=== PATIENT | male | born 1965 | race Caucasian/White ===

== ENCOUNTER 2021-10-05 04:34 | Inpatient (IN) | payer OTHER ==
[~2021-10-05] VITALS: Ht 182.9 cm; Wt 150.6 kg
[2021-10-05 05:29] LABS: BASOPHILS ABSOLUTE AUTO 0.02 K/mm3 (0.00-0.23); BASOPHILS PERCENT AUTO 0 % (0-2); EOSINOPHILS ABSOLUTE AUTO 0.05 K/mm3 (0.00-0.68); EOSINOPHILS PERCENT AUTO 1 % (0-6); Hematocrit 40.5 % (37.0-53.0); Hemoglobin 13.9 g/dL (13.5-17.5); IMMATURE GRAN ABSOLUTE AUTO 0.04 K/mm3 (0.00-0.10); IMMATURE GRAN PERCENT AUTO 1 % (0-1); LYMPHOCYTES ABSOLUTE AUTO 1.59 K/mm3 (0.84-5.20); LYMPHOCYTES PERCENT AUTO 19 % (21-46); MONOCYTES ABSOLUTE AUTO 0.55 K/mm3 (0.16-1.47); MONOCYTES PERCENT AUTO 6 % (4-13); Mean Corpuscular HGB 30.8 pg (26.0-34.0); Mean Corpuscular HGB Conc 34.3 g/dL (31.5-36.5); Mean Corpuscular Volume 90 fL (80-100); NEUTROPHILS ABSOLUTE AUTO 6.33 K/mm3 (1.96-9.15); NEUTROPHILS PERCENT AUTO 74 % (41-73); Platelet Count 200 K/mm3 (150-400); RDW Coefficient Variation 15.9 % (11.7-14.2); RDW Standard Deviation 53.5 fL (35.1-46.3); Red Blood Cell Count 4.51 M/mm3 (4.30-5.90); White Blood Cell Count 8.58 K/mm3 (4.00-11.30)
[2021-10-05 06:10] LABS: Alanine Aminotransfer (ALT/SGP 82 U/L (12-78); Albumin, Blood 2.8 g/dL (3.4-5.0); Albumin/Globulin Ratio 0.6 (0.8-1.8); Alk Phos 106 U/L (50-136); Anion Gap 9 mmol/L (6-16); Aspartate Aminotrans (AST/SGOT 171 U/L (12-37); Bilirubin, Total 1.3 mg/dL (0.1-1.0); Blood Urea Nitrogen 13 mg/dL (8-24); Bun/Creatinine Ratio 14.5 (12.0-20.0); CO2, Blood 32 mmol/L (21-32); Calcium, Blood 8.2 mg/dL (8.5-10.1); Chloride, Blood 92 mmol/L (98-108); Creatinine, Blood 0.89 mg/dL (0.60-1.20); Globulin, Blood 4.5 g/dL (2.2-4.0); Glomerular Filtration Rate >60 (60-); Glucose, Blood 151 mg/dL (70-99); Potassium, Blood 2.8 mmol/L (3.5-5.5); Sodium, Blood 133 mmol/L (136-145); Total Protein, Blood 7.3 g/dL (6.4-8.2); Troponin I <0.015 ng/mL (0.000-0.040)
[2021-10-05 08:00] LABS: Source, Urine Clean Catch
[2021-10-05 08:10] LABS: Appearance, Urine Hazy (Clear); Bilirubin, Urine Neg (Neg); Blood, Urine Neg (Neg); Color, Urine Yellow (P-Yellow); Glucose Qualitative, Urine Neg (Neg); Ketones, Urine Neg (Neg); Leukocyte Esterase, Urine Neg (Neg); Nitrite, Urine Neg (Neg); Protein, Urine Neg (Neg); Urobilinogen, Urine NORM (Normal)
[2021-10-05 08:26] LABS: Amorphous Mod (0-Heavy); Bacteria Mod /hpf; Mucus Light (0-Heavy); Red Blood Cells, Urine 0-2 /hpf (0-2); Squamous Epithelial Cells Few /hpf (Few); White Blood Cells, Urine 0-2 /hpf (0-5)
[2021-10-05 09:22] LABS: Influenza A, PCR NEGATIVE (NEGATIVE); Influenza B, PCR NEGATIVE (NEGATIVE); Resp Syncytial Virus, PCR NEGATIVE (NEGATIVE); SARS-Cov-2 (COVID-19) PCR, MMC NEGATIVE (NEGATIVE)
--- NOTE | 2021-10-05 18:22 | NUR ---
PT PLEASANT, COOP A/O X3. SOME GARBLED SPEACH WHEN STARTS TALKING. ADMITS TO ETOH ABUSE. LAST DRINK TUES. STATES HAS HAD WITHDRAWLS BEFORE MOSTLY SHAKES. WORKS [employer]. DISCUSSED WITH DR STRONG. ORDERS PENDING FOR ETOH W/D MEDS. CWA PRESENTLY 4. ABD IS DISTENDED MODERATELY FOR PT. FIRM . TENDER. STATES ICE CHIPS OKAY, DOES NOT INCREASE PAIN. ADVISED TO STOP IF BECOMES PROBLEMATIC. H/R REG, NO MURMER NOTED. NO TELE. LUNGS CLEAR, RESP EASY, UNLABORED, ON R/A. BT X4, LAST BM COUPLE DAYS. NOT EATING COUPLE DAYS PER PT. VOIDS URINAL. OR SBA TO BATHROOM. BED ALARM ON FOR SAFETY, BED IN LOW POSITION, CALLLITE IN REACH.
[2021-10-05 22:27] LABS: Magnesium, Blood 1.1 mg/dL (1.6-2.4); Potassium, Blood 3.5 mmol/L (3.5-5.5)
[2021-10-06 04:29] LABS: BASOPHILS ABSOLUTE AUTO 0.04 K/mm3 (0.00-0.23); BASOPHILS PERCENT AUTO 0 % (0-2); EOSINOPHILS ABSOLUTE AUTO 0.04 K/mm3 (0.00-0.68); EOSINOPHILS PERCENT AUTO 0 % (0-6); Hematocrit 44.2 % (37.0-53.0); Hemoglobin 15.2 g/dL (13.5-17.5); IMMATURE GRAN ABSOLUTE AUTO 0.22 K/mm3 (0.00-0.10); IMMATURE GRAN PERCENT AUTO 1 % (0-1); LYMPHOCYTES ABSOLUTE AUTO 0.87 K/mm3 (0.84-5.20); LYMPHOCYTES PERCENT AUTO 6 % (21-46); MONOCYTES ABSOLUTE AUTO 0.62 K/mm3 (0.16-1.47); MONOCYTES PERCENT AUTO 4 % (4-13); Mean Corpuscular HGB 30.8 pg (26.0-34.0); Mean Corpuscular HGB Conc 34.4 g/dL (31.5-36.5); Mean Corpuscular Volume 90 fL (80-100); Mean Platelet Volume 9.2 fL (9.1-12.4); NEUTROPHILS ABSOLUTE AUTO 14.02 K/mm3 (1.96-9.15); NEUTROPHILS PERCENT AUTO 89 % (41-73); Platelet Count 145 K/mm3 (150-400); RDW Coefficient Variation 15.9 % (11.7-14.2); RDW Standard Deviation 52.9 fL (35.1-46.3); Red Blood Cell Count 4.93 M/mm3 (4.30-5.90); White Blood Cell Count 15.81 K/mm3 (4.00-11.30)
[2021-10-06 05:11] LABS: Alanine Aminotransfer (ALT/SGP 54 U/L (12-78); Albumin, Blood 2.5 g/dL (3.4-5.0); Albumin/Globulin Ratio 0.7 (0.8-1.8); Alk Phos 90 U/L (50-136); Anion Gap 8 mmol/L (6-16); Aspartate Aminotrans (AST/SGOT 98 U/L (12-37); Bilirubin, Total 2.6 mg/dL (0.1-1.0); Blood Urea Nitrogen 14 mg/dL (8-24); CO2, Blood 28 mmol/L (21-32); Chloride, Blood 96 mmol/L (98-108); Globulin, Blood 3.4 g/dL (2.2-4.0); Glomerular Filtration Rate >60 (60-); Glucose, Blood 83 mg/dL (70-99); Magnesium, Blood 1.5 mg/dL (1.6-2.4); Potassium, Blood 3.3 mmol/L (3.5-5.5); Sodium, Blood 132 mmol/L (136-145); Total Protein, Blood 5.9 g/dL (6.4-8.2)
--- NOTE | 2021-10-06 05:51 | NUR ---
PT IS ORIENTED X4, HAS SLEPT SOME OF THE NIGHT WITH MANY TRIPS TO THE RESTROOM. PT C/O ABD, L RIB AND BILATERAL FLANK PAIN AND HAS BEEN TREATED PER EMAR. PT ETOH WITHDRAWAL ASSESSMET HAS REMAINED UNCHANGED AT 4 DUE TO MILD TREMORS. PT STATES HE DRINKS 40+ BEERS A DAY AND 1.5 PACKS OF CIGARETTES DAILY. PT STATES HE IS NOT SURE HE WANTS TO QUIT SMOKING. 1 PERSON ASSIST WITH BED ALRM ON. WILL CONT TO MONITOR.
--- NOTE | 2021-10-06 09:32 | NUR ---
Spiritual care visit conducted. Patient is lying in bed and alert. Patient immediately tells me about his alcoholism and the successes and failures that he has had through the years. As i explore his spiritual beliefs he states that he is a Pentecostal and that the longest runs of being alocohol free have been when he is deeply invovled in prayer, Bible reading and gnosticist attendance. We talk about strategies for moving forward, I hear confession, reinforce helpful attitudes and practices and provide therapeutic listening, pastoral mental health counselor and prayer. Patient responds well and shows signs of catharsis and increased resolve to live healthier. I will continue to remain available to patient and family.
--- NOTE | 2021-10-06 16:49 | NUR ---
PT DOING BETTER THIS JAVIER. GAVE LIBRIUM FOR ANX AND SHAKEYNESS, STATES SOME BETTER. IS CONCERNED THAT HE WILL HAVE FURTHER PROBLEMS WITH PANCREACE. WE HAD GOOD DISCUSSION, EXPLAINED THAT SOMETIMES OUR BODIES CAN HEAL WITH REST. SOMETIMES CANNOT. SO IT IS BEST TO STOP INSULTING BODY WITH BAD HABITS. MOVE TO SAFER DECISIONS. STOP DRINKING, EAT BETTER, MOVE MORE. ETC. NO NEW CONCERNS NOTED. BED IN LOW POSITION, CALL LITE IN REACH, CALLS APPROP
--- NOTE | 2021-10-07 05:36 | NUR ---
CHANGE IN STATUS/CODE AT START OF SHIFT, PT WAS A&O X 4, ABLE TO AMBULATE SBA TO THE BATHROOM. PT WAS MILDLY ANXIOUS AND RESTLESS AND REPORTED NAUSEA, AND WAS MEDICATED WITH PRN IV PHENERGAN AND LIBRIUM 25 MG AT 2034. PT'S NAUSEA WAS RELIEVED AND HE SLEPT FOR A SHORT TIME, BUT THEN AWOKE STILL APPEARING ANXIOUS AND RESTLESS. HOSPITALIST DR DAO NOTIFIED AT APPROXIMATELY 2199, AND LIBRIUM WAS INCREASED TO 50 MG AND A OT DOSE OF ATIVAN 1 MG WAS ORDERED. PT WAS GIVEN 50 MG OF LIBRIUM AT 2234. CIWA AT THAT TIME WAS BETWEEN 9-11. AFTER AN HOUR, PT REPORTED THAT HE FELT BETTER, AND THAT HE DIDN'T WANT ANY FURTHER MEDICATION AT THAT TIME. PT DID SLEEP FOR A SHORT AMOUNT OF TIME, BUT THEN HIS CONDITION BEGAN TO DECLINE AFTER APPROXIMATELY 0100. PT WAS GETTING OUT OF BED FREQUENTLY, APPEARED MORE CONFUSED AND AGITATED, AND BEGAN SWEATING PROFUSELY. PT ALSO REPORTED SEEING A "FACE STARING AT ME FROM THE WINDOW". PT WAS GIVEN OT DOSE OF ATIVAN AT 015 AFTER HE PULLED OUT HIS IV TRYING TO FIND THE "WOMAN WHO WAS STARING AT ME". CIWA AT THAT TIME WAS 18. AFTER THAT DOSE OF ATIVAN, PT BECAME MORE CONFUSED AND AGITATED, WITH VERBAL AND AUDITORY HALLUCINATIONS. PT WAS ABLE TO ANSWER SOME QUESTIONS AT THAT TIME, TO TELL THE MONTH AND THE YEAR BUT NOT HIS LOCATION OR THE DAY. CIWA REMAINED AT 17-18 AFTER INITIAL DOSE OF ATIVAN. HOSPITALIST DR BANGURA WAS CALLED, AND A NEW ORDER FOR ATIVAN 1-3 MG Q2H WAS RECEIVED. PT WAS MEDICATED WITH 2 MG ATIVAN AT 030, AND HE WAS TRANSFERED TO ROOM [facility] TO PUT HIM ON CAMERA MONITORING. PT BECAME MORE CONFUSED, UNABLE TO FOLLOW DIRECTIONS OR ANSWER QUESTIONS, TRYING TO CLIMB OUT OF BED. HE WAS PLACED IN A BILL VEST RESTRAINT, THEN IN WRIST RESTRAINTS WHEN HE TRIED TO RIP HIS BILL VEST AND IV LINE APART. PT WAS THEN GIVEN AN ADDITIONAL 1 MG ATIVAN AT 033, AND A CALL OUT WAS PLACED TO DR BANGURA FOR FURTHER ORDERS AND RESTRAINT ORDERS. THIS RN WAS OUT OF THE ROOM WHEN PT HAD A SEIZURE PER REPORT FROM LEE PETERSON. A RAPID RESPONSE WAS CALLED APPROXIMATELY 344, THEN A CODE CALLED IMMEDIATELY AFTER WHEN PT WAS FOUND NOT TO HAVE A PULSE. CPR WAS STARTED. PT BROUGHT BACK AND TRANSFERED TO ICU02. REPORT GIVEN TO LEE HOGUE IN ICU.
[2021-10-07 06:03] LABS: Hematocrit 40.6 % (37.0-53.0); Hemoglobin 13.7 g/dL (13.5-17.5); Mean Corpuscular HGB 30.9 pg (26.0-34.0); Mean Corpuscular HGB Conc 33.7 g/dL (31.5-36.5); Mean Corpuscular Volume 91 fL (80-100); Mean Platelet Volume 9.8 fL (9.1-12.4); Platelet Count 110 K/mm3 (150-400); RDW Coefficient Variation 16.3 % (11.7-14.2); RDW Standard Deviation 55.4 fL (35.1-46.3); Red Blood Cell Count 4.44 M/mm3 (4.30-5.90); White Blood Cell Count 13.71 K/mm3 (4.00-11.30)
[2021-10-07 06:08] LABS: PCO2 Arterial 43.6 mmHg (35-45); PO2 Arterial 72.5 mmHg (80-100); pH Blood Arterial 7.37 (7.35-7.45)
[2021-10-07 06:23] LABS: Albumin, Blood 1.9 g/dL (3.4-5.0); Albumin/Globulin Ratio 0.5 (0.8-1.8); Bilirubin, Total 3.1 mg/dL (0.1-1.0); Bun/Creatinine Ratio 14.5 (12.0-20.0); Calcium, Blood 6.3 mg/dL (8.5-10.1); Creatinine, Blood 1.73 mg/dL (0.60-1.20); Globulin, Blood 3.5 g/dL (2.2-4.0); Potassium, Blood 3.7 mmol/L (3.5-5.5); Total Protein, Blood 5.4 g/dL (6.4-8.2)
[2021-10-07 06:45] LABS: BAND PERCENT MAN 16 % (0-8); BASOPHILS PERCENT MAN 0 % (0-2); EOSINOPHILS PERCENT MAN 0 % (0-6); LYMPHOCYTES ABSOLUTE MAN 0.41 K/mm3 (0.84-5.20); LYMPHOCYTES PERCENT MAN 3 % (21-46); MONOCYTES ABSOLUTE MAN 0.41 K/mm3 (0.16-1.47); MONOCYTES PERCENT MAN 3 % (4-13); MYELOCYTE ABSOLUTE MAN 0.13 K/mm3 (0.00-0.00); MYELOCYTE PERCENT MAN 1 % (0-0); NEUTROPHILS ABSOLUTE MAN 12.75 K/mm3 (1.96-9.15); SEG NEUTROPHILS PERCENT MAN 77 % (41-73); TOTAL CELLS COUNTED 100
--- NOTE | 2021-10-07 07:30 | NUR ---
ASSUMED CARE PATIENT INTUBATED AND SEDATED W/ PROPOFOL @ 40MCG/KG/MIN. 8.0 ETT 24CM @ TEETH; AC/VC 16/550/5/90% W/ SPO2 HIGH 90'S AND RR 16-18. 20G IV TO RT FOREARM, CENTRAL LINE TO RT IJ INF NS @ 75ML/HR, PROPOFOL, AND LEVOPHED @ 4MCG/MIN. PATIENT HAS FREQUENT NONPURPOSEFUL JERKING MOVEMENT OF UPPER BODY. NO GAG OR SWALLOW REFLEX, BUT WEAK COUGH IS PRESENT. GRIMACES AND REACHES TO NOXIOUS STIMULI AND PULLS ARM AWAY FROM PAIN WHEN CUTTING TAPE OFF OF ARM, BUT DOES NOT FOLLOW DIRECTION. PUPILS ARE PINPOINT AND NONREACTIVE TO LIGHT WERO. CLEAR LUNG SOUNDS T/O AND DIMINISHED IN BASES. CLEAR SPUTUM FROM ETT W/ RED TINGE FROM BLOOD. FAINT PULSES IN ALL EXTREMITIES. BP STABLE W/ MAPS GREATER THAN 65. SINUS RHYTHM W/ RATE 80'S. ABD SEVERELY DISTENDED W/ ABSENT BT. OGT PLACED DURING ASSESSMENT. PLACEMENT VERIFIED VIA AIR THROUGH OGT AND PLACED TO LOW INTERMITTENT SUCTION W/ COPIOUS AMOUNTS OF DARK GREEN BILE SUCTIONED. SKIN IS OVERALL DRY AND DUSKY, SCATTERED BRUISING TO BUE.
[2021-10-07 07:46] LABS: Source, Urine Catheter
[2021-10-07 07:52] LABS: Appearance, Urine Cloudy (Clear); Blood, Urine 4+ (Neg); Color, Urine Amber (P-Yellow); Glucose Qualitative, Urine Neg (Neg); Ketones, Urine Neg (Neg); Leukocyte Esterase, Urine 1+ (Neg); Nitrite, Urine Neg (Neg); Protein, Urine 3+ (Neg); Specific Gravity, Urine 1.025 (1.003-1.022); Urobilinogen, Urine 1+ (Normal)
[2021-10-07 08:04] LABS: Bilirubin, Urine 1+ (Neg)
[2021-10-07 08:08] LABS: Squamous Epithelial Cells Many /hpf (Few)
[2021-10-07 08:09] LABS: Amorphous Heavy (0-Heavy); Bacteria Many /hpf; Transitional Epithelial Cells Few /hpf (0-Rare)
[2021-10-07 09:12] LABS: Prothrombin Time Results 16.7 Sec (9.7-11.5)
[2021-10-07 09:41] LABS: International Normalized Ratio 1.53
--- NOTE | 2021-10-07 11:46 | NUR ---
CT SCAN/PREIUMBILICAL DISCOLORATION DURING CT OF HEAD, YELLOW DISCOLORATION NOTED AT PERIUMBILICAL AREA THAT IS NONBLANCHING AND COOL TO TOUCH. CALLED DR. CHANG FROM CT AND HE ARRIVED TO ASSESS; CT ABD PELVIS ORDERED AND COMPLETED. WILL OBTAIN ABD PRESSURE READINGS.
--- NOTE | 2021-10-07 12:34 | NUR ---
BANANA BAG AND NS DC'D PER DR. CHANG. CL DRSG CHANGED. CLAY CASTER AT BEDSIDE.
--- NOTE | 2021-10-07 13:32 | NUR ---
ABD PRESSURE ABD PRESSURE OF 18 OBTAINED AT BEDISDE.
--- NOTE | 2021-10-07 15:26 | NUR ---
PT'S MOTHER UPDATED. PT GAVE VERBAL PERMISSION FOR MOTHER TO MAKE MEDICAL DECISIONS-PER DR STRONG.
[2021-10-07 16:29] LABS: Albumin, Blood 2.4 g/dL (3.4-5.0); Anion Gap 12 mmol/L (6-16); Blood Urea Nitrogen 24 mg/dL (8-24); Bun/Creatinine Ratio 16.8 (12.0-20.0); CO2, Blood 23 mmol/L (21-32); Calcium, Blood 5.6 mg/dL (8.5-10.1); Chloride, Blood 96 mmol/L (98-108); Creatinine, Blood 1.43 mg/dL (0.60-1.20); Glomerular Filtration Rate 51 (60-); Glucose, Blood 156 mg/dL (70-99); Potassium, Blood 3.3 mmol/L (3.5-5.5); Sodium, Blood 131 mmol/L (136-145)
--- NOTE | 2021-10-07 16:57 | NUR ---
LABS/ABD PRESSURE CALCIUM AND POTASSIUM CAME BACK LOW. CALL MADE TO DR. CHANG AND HE ORDERED 1G CALCIUM CHLORIDE IV NOW AND Q8H AND POTASSIUM CHLORIDE 40MEQ IV NOW. ABD PRESSURE INCREASED FROM [address] CHANG NOTIFIED AND REQUESTED RECHECK @ 5234. NURSE NOTIFY PLACED.
--- NOTE | 2021-10-07 17:57 | NUR ---
PT POSITIONED FLAT FOR TURN, DURING THIS TIME PT BEGAN PULLING ON RESTRAINTS W GREAT STRENGTH, FACE PURPLE, PT THEN BEGAN STACKING ON VENT CONTINOUSLY. PROPOFOL INCREASED TO 50MCG, VERSED 2MG GIVEN.
--- NOTE | 2021-10-07 18:22 | NUR ---
SHIFT SUMMARY PATIENT REMAINED INTUBATED AND SEDATED THROUGHOUT SHIFT. PROPOFOL INCREASED TOWARDS END OF SHIFT D/T PATIENT ATTEMPTING TO SIT UP IN BED, PULLING AT RESTRAINTS, AND STACKING HIS BREATHS ON THE VENT; PROPOFOL NOW @ 50MCG/KG/MIN AND VERSED IVP GIVEN. LEVOPHED DECREASED TO 3MCG/MIN. NS INF @ 75ML/HR. PATIENT RECEIVED ELECTROLYTE REPLACEMENTS OF POTASSIUM, CALCIUM, MAGNESIUM, AND THIAMINE. HE ALSO RECIEVED TWO DOSES OF ALBUMIN. CT OF HEAD COMPLETED AND CT ABD ADDED ON AT THAT TIME; SEE CT NOTE. ABD PRESSURES INCREASED FROM 18 TO 21; SEE NOTE ON ABD PRESSURES. NO OTHER MAJOR CHANGES DURING THE SHIFT.
--- NOTE | 2021-10-07 23:11 | NUR ---
iNTRA-ABDOMINAL/BLADDER PRESSURE READING. READING WAS 20 AT 2230 ON 10/07/21
[2021-10-08 03:42] LABS: BASOPHILS ABSOLUTE AUTO 0.03 K/mm3 (0.00-0.23); BASOPHILS PERCENT AUTO 0 % (0-2); EOSINOPHILS PERCENT AUTO 1 % (0-6); Hematocrit 37.9 % (37.0-53.0); IMMATURE GRAN ABSOLUTE AUTO 0.06 K/mm3 (0.00-0.10); IMMATURE GRAN PERCENT AUTO 1 % (0-1); LYMPHOCYTES PERCENT AUTO 7 % (21-46); MONOCYTES ABSOLUTE AUTO 1.16 K/mm3 (0.16-1.47); MONOCYTES PERCENT AUTO 10 % (4-13); Mean Corpuscular HGB 31.4 pg (26.0-34.0); Mean Corpuscular HGB Conc 34.3 g/dL (31.5-36.5); Mean Corpuscular Volume 92 fL (80-100); NEUTROPHILS PERCENT AUTO 81 % (41-73); NRBC ABSOLUTE 0.02 K/mm3 (0.00-0.02); NRBC Auto 0.2 /100 WBC (0.0-0.2); Platelet Count 113 K/mm3 (150-400); RDW Coefficient Variation 17.2 % (11.7-14.2); RDW Standard Deviation 56.8 fL (35.1-46.3); Red Blood Cell Count 4.14 M/mm3 (4.30-5.90); White Blood Cell Count 11.65 K/mm3 (4.00-11.30)
[2021-10-08 04:09] LABS: Alanine Aminotransfer (ALT/SGP 31 U/L (12-78); Albumin, Blood 2.6 g/dL (3.4-5.0); Albumin/Globulin Ratio 0.8 (0.8-1.8); Alk Phos 75 U/L (50-136); Anion Gap 12 mmol/L (6-16); Aspartate Aminotrans (AST/SGOT 56 U/L (12-37); Bilirubin, Total 2.4 mg/dL (0.1-1.0); Blood Urea Nitrogen 19 mg/dL (8-24); Bun/Creatinine Ratio 16.4 (12.0-20.0); CO2, Blood 23 mmol/L (21-32); Calcium, Blood 6.7 mg/dL (8.5-10.1); Chloride, Blood 98 mmol/L (98-108); Creatinine, Blood 1.16 mg/dL (0.60-1.20); Globulin, Blood 3.4 g/dL (2.2-4.0); Glomerular Filtration Rate >60 (60-); Glucose, Blood 96 mg/dL (70-99); Magnesium, Blood 2.2 mg/dL (1.6-2.4); Potassium, Blood 3.2 mmol/L (3.5-5.5); Sodium, Blood 133 mmol/L (136-145)
--- NOTE | 2021-10-08 06:06 | NUR ---
SUMMARY: NEURO- SEDATEDON PROP. POST CODE 10/07/21. PERRL. 2-3MM. GRIMACE AND W/D TO PAIN. NO COUGH OR GAG APPARENT. RESP- DIFFICULT TO LAY FLAT. PT WILL HOLD BREATH OR STACK AND FIGHT VENT UNTIL HOB ELEVATED. LUNGS CLEAR T/O, EQUAL BILAT. RT ADJUSTED VENT SETTINGS OVERNIGHT. SPO2 >95% CV- HR 80'S, BP WNL 120-130'S LEVO OFF SINCE 2100. CAP REFILL WNL, PALPABLE PULSES X 4 GI. OG TO LIWS. 700ML OUT. ACTIVE BS. LAST BM 10/06 . PINK TINGED UOP. STAINED PATEL TUBE. LOTS OF SEDIMENT. ANNAMARIE IN COLOR NOW. SKIN INTACT. ABD MARKED AND AREA REFILL IMPROVING. R-IJ AND R-AC IV. K REPLACEMENT IN PROGRESS.
--- NOTE | 2021-10-08 09:43 | NUR ---
ASSUMED CARE REPORT RECIEVED FROM CARROTING MACHINE OFFBEARER RN. PATIENT LYING IN BED INTUBATED AND SEDATED ON PROPOFOL @ 60MCG/KG/MIN. LEVOPHED ON SB; NS @ TKO AND KCL INF. PATIENT DOES NOT OPEN EYES OR FOLLOW COMMANDS, PUPILS 2MM WERO AND SLUGGISH RESPONSE TO LIGHT. TEMP 98.7F. GRIMACES, PULLS ON RESTRAINTS, ATTEMPTS TO SIT UP IN BED, AND COUGHS TO ORAL CARE AND REPOSITIONING. 8.[address] 24CM @ TEETH. AC/VC 16/550/14/60% W/ SPO2 IN MID TO HIGH 90'S, RR 20'S. OCCASSIONAL COUGH W/ THIN WHITE SECRETIONS. LUNG SOUNDS CLEAR T/O AND DIM IN BASES. PULSES STRONG IN ALL EXTREMITIES, SINUS TACH W/ RATE IN 100'S. ABD SEVERELY DISTENDED AND FIRM TO PALPATION. HYPOACTIVE BT T/O. OGT IN PLACE TO LOW INTERMITTENT SUCTION DRAINING DARK GREEN BILE. YELLOW DISCOLORATION IN PERIUMBILICAL AREA IS BECOMING MORE PINK AND IS NO LONGER COOL TO TOUCH. OUTLINE FROM YESTERDAY STILL IN PLACE. PATEL PATENT AND DRAINING ANNAMARIE/RED URINE WITH LARGE AMOUNTS OF SEDIMENT TO GRAVITY. SKIN IS OVERALL DIAPHORETIC W/ BEADING OF SWEAT ON FOREHEAD. INCREASED PROPOFOL TO 70MCG/KGMIN AFTER PATIENT HAD INCREASED COUGHING, PULLING ON RESTRAINTS, SWEATING, TACHYCARDIA W/ RATE IN 110'S-120'S, AND INCREASED BLOOD PRESSURE DESPITE VERSED AND DILAUDID IVP. SPOKE W/ DR. CHANG AND ORDERS OBTAINED TO START PRECEDEX.
--- NOTE | 2021-10-08 13:44 | NUR ---
PRECEDEX GTT STARTED AT 1020. BP SLOWLY STRATED TO TREND DOWNWARD OVER THE NEXT 2 HOURS. AROUND NOON, MAP DROP <60. PRECEDEX DECREASED TO 0.3MCG, PROPOFOL DECREASED TO 20MCG, AND LEVOPHED STARTED AT 4MCG AND INCREASED TO 8MCG. PT WELL SEDATED BUT STARTED STACKING ON VENT, PROPOFOL INCREASED TO 30MCG. LEVOPHED NOW AT 6MCG, WILL CONT TO TITRATE DOWN JULIO.
--- NOTE | 2021-10-08 18:23 | NUR ---
SHIFT SUMMARY PATIENT EXHIBITING MORE NEUROLOGICAL RESPONSES TO STIMULI; MOVES HEAD SIDE TO SIDE WITH STIMULI AND ORAL CARE. PRECEDEX STARTED TODAY AND TITRATED DOWN TO 0.3MCG/KG/HR. PATIENT BECAME HYPOTENSIVE W/ MAPS IN THE 50'S WHEN PRECEDEX WAS AT 0.5MCG/KG/HR W/ PROPOFOL INF. LEVOPHED STARTED AGAIN FOR A SHORT TIME, BUT IS NOW BACK TO STAND BY. PROPOFOL NOW AT 20MCG/KG/MIN AND TOLERATING VENT WELL. FIO2 TITRATED DOWN TODAY AND NOW AT AC/VC 16/550/14/45% W/ SPO2 IN MID TO HIGH 90S'S, RR 16-LOW 20'S. ABD PRESSURE THIS MORNING WAS 13 AND BOWEL TONES NOW PRESENT AND HYPOACTIVE. OGT TO SUCTION W/ GREEN BILE DRAINAGE. PATEL PATENT AND DRAINING ANNAMARIE/RED URINE W/ LARGE AMOUNTS OF SEDIMENT. PATIENT'S MOTHER CAME TO BEDSIDE TO VISIT TODAY.
--- NOTE | 2021-10-08 20:45 | NUR ---
PATIENT INTUBATED AND SEDATED, PROPOFOL 35 MCG, PRECEDEX 0.3 MCG. AWAKENS TO SLIGHT STIMULI, COUGHING AND GRIMACING WITH CARE. VENT AC 16, TV 550, PEEP 14, FIO2 45% SUCTIONING SMALL AMT CLEAR SECRETIONS. ABD FIRM AND ROUND, OG IN PLACE PLACED TO LIS DRAINING CLEAR TO GREEN BILE. LEVOPHED RESTARTED 2 MCG FOR HYPOTENSION. PATEL DRAINING ORANGE/ PINK TINGED URINE.
[2021-10-09 04:17] LABS: Hematocrit 38.1 % (37.0-53.0); Hemoglobin 12.6 g/dL (13.5-17.5); Mean Corpuscular HGB 30.6 pg (26.0-34.0); Mean Corpuscular HGB Conc 33.1 g/dL (31.5-36.5); Mean Corpuscular Volume 93 fL (80-100); Mean Platelet Volume 10.1 fL (9.1-12.4); Platelet Count 119 K/mm3 (150-400); RDW Coefficient Variation 17.5 % (11.7-14.2); RDW Standard Deviation 59.2 fL (35.1-46.3); Red Blood Cell Count 4.12 M/mm3 (4.30-5.90); White Blood Cell Count 10.37 K/mm3 (4.00-11.30)
[2021-10-09 04:39] LABS: Albumin, Blood 2.1 g/dL (3.4-5.0); Anion Gap 11 mmol/L (6-16); BAND PERCENT MAN 26 % (0-8); BASOPHILS PERCENT MAN 0 % (0-2); Blood Urea Nitrogen 18 mg/dL (8-24); Bun/Creatinine Ratio 14.5 (12.0-20.0); CO2, Blood 22 mmol/L (21-32); Calcium, Blood 7.5 mg/dL (8.5-10.1); Chloride, Blood 102 mmol/L (98-108); Creatinine, Blood 1.24 mg/dL (0.60-1.20); EOSINOPHILS PERCENT MAN 0 % (0-6); Glomerular Filtration Rate >60 (60-); Glucose, Blood 94 mg/dL (70-99); LYMPHOCYTES ABSOLUTE MAN 0.62 K/mm3 (0.84-5.20); LYMPHOCYTES PERCENT MAN 6 % (21-46); MONOCYTES ABSOLUTE MAN 1.34 K/mm3 (0.16-1.47); MONOCYTES PERCENT MAN 13 % (4-13); Magnesium, Blood 2.2 mg/dL (1.6-2.4); NEUTROPHILS ABSOLUTE MAN 8.39 K/mm3 (1.96-9.15); Phosphorus, Blood 2.3 mg/dL (2.5-4.9); Potassium, Blood 3.2 mmol/L (3.5-5.5); SEG NEUTROPHILS PERCENT MAN 55 % (41-73); Sodium, Blood 135 mmol/L (136-145); TOTAL CELLS COUNTED 100
--- NOTE | 2021-10-09 06:54 | NUR ---
SUMMARY PATIENT REMAINS INTUBATED AND SEDATED, VENT AC/VC 16, TV 550, PEEP 14, FIO2 45% SUCTIONING SMALL AMT WHITE SPUTUM. PRECEDEX 0.3 MCG AND PROPOFOL 35 MCG FOR SEDATION. LEVOPHED 1 MCG FOR HYPOTENSION. OG REMAINS IN PLACE WITH LIS GREEN/BROWN BILE DRAINAGE. ABD REMAINS ROUND AND FIRM.
--- NOTE | 2021-10-09 10:18 | NUR ---
ASSUME CARE: I have assumed care of pt at this time. He is intubated, sedated with propofol and precedex, and in soft bilateral wrist restraints.
--- NOTE | 2021-10-09 18:35 | NUR ---
END OF SHIFT SUMMARY: Precedex stopped this morning per physican order. Levo titrated off. Vent settings now A/C VC; FiO2 40% with a PEEP 10. Pt's HR tacycardic and BP slightly elevated after precedex stopped. PRN dilaudid given for pain as indicated by tachycardia, furrowed brow, and diaphoresis. Propofol currently at 45 mcg/kg. Pt moving all extremities and reaching purposfully with BUE. Trickle feeds initiated and pt seems to be tolerating well.
--- NOTE | 2021-10-09 19:39 | NUR ---
PATIENT INTUBATED AND SEDATED WITH PROPOFOL 45 MCG PATIENT AWAKENS TO STIMULI REACHING TO ETT WITH BOTH HANDS, KICKING FEET, GRIMACING AND OPENING EYES SLIGHTLY. NOT FOLLOWING DIRECTIONS. BILAT WRIST RESTRAINTS CONTINUE. ETT IN PLACE VENT SET AC/VC 16, TV 550, PEEP 10, FIO2 40%. OG IN PLACE WITH VITAL HP AT GOAL RATE OF 15 CC/HR. ABD ROUND AND FIRM WITH ONLY SLIGHT GIVE.
[2021-10-10 04:21] LABS: Hematocrit 38.1 % (37.0-53.0); Hemoglobin 12.8 g/dL (13.5-17.5); Mean Corpuscular HGB 30.9 pg (26.0-34.0); Mean Corpuscular HGB Conc 33.6 g/dL (31.5-36.5); Mean Corpuscular Volume 92 fL (80-100); Platelet Count 137 K/mm3 (150-400); RDW Coefficient Variation 17.6 % (11.7-14.2); RDW Standard Deviation 59.2 fL (35.1-46.3); Red Blood Cell Count 4.14 M/mm3 (4.30-5.90); White Blood Cell Count 10.62 K/mm3 (4.00-11.30)
[2021-10-10 04:37] LABS: Alanine Aminotransfer (ALT/SGP 20 U/L (12-78); Albumin, Blood 1.9 g/dL (3.4-5.0); Albumin/Globulin Ratio 0.4 (0.8-1.8); Alk Phos 91 U/L (50-136); Anion Gap 11 mmol/L (6-16); Aspartate Aminotrans (AST/SGOT 37 U/L (12-37); Blood Urea Nitrogen 21 mg/dL (8-24); Bun/Creatinine Ratio 16.9 (12.0-20.0); CO2, Blood 23 mmol/L (21-32); Calcium, Blood 7.1 mg/dL (8.5-10.1); Chloride, Blood 103 mmol/L (98-108); Creatinine, Blood 1.24 mg/dL (0.60-1.20); Globulin, Blood 4.3 g/dL (2.2-4.0); Glomerular Filtration Rate >60 (60-); Glucose, Blood 122 mg/dL (70-99); Magnesium, Blood 1.9 mg/dL (1.6-2.4); Phosphorus, Blood 2.2 mg/dL (2.5-4.9); Potassium, Blood 3.2 mmol/L (3.5-5.5); Sodium, Blood 137 mmol/L (136-145); Total Protein, Blood 6.2 g/dL (6.4-8.2); Triglycerides 292 mg/dL (30-160)
--- NOTE | 2021-10-10 04:41 | NUR ---
PATIENT MORE RESTLESS HEART RATE 120'S, COUGHING, DIAPHORETIC, AND GRIMACING. DILAUDID IV GIVEN FOR PAIN AND PATIENT REPOSITIONED.
[2021-10-10 05:26] LABS: BAND PERCENT MAN 18 % (0-8); BASOPHILS PERCENT MAN 0 % (0-2); EOSINOPHILS PERCENT MAN 0 % (0-6); LYMPHOCYTES ABSOLUTE MAN 0.42 K/mm3 (0.84-5.20); LYMPHOCYTES PERCENT MAN 4 % (21-46); MONOCYTES ABSOLUTE MAN 1.59 K/mm3 (0.16-1.47); MONOCYTES PERCENT MAN 15 % (4-13); SEG NEUTROPHILS PERCENT MAN 63 % (41-73); TOTAL CELLS COUNTED 100
--- NOTE | 2021-10-10 05:55 | NUR ---
SUMMARY PATIENT REMAINS INTUBATED AND SEDATED. PROPOFOL 45 MCG, MEDICATED ONCE WITH DILAUDID FOR PAIN. PATIENT DIAPHORETIC ON AND OFF T/O NIGHT. ETT IN PLACE WITH VENT AC/VC 16, TV 550, PEEP 10, FIO2 40% OCCASIONAL COUGH WITH MIN SECRETIONS. OG IN PLACE WITH VITAL HP AT GOAL RATE OF 15 CC/HR WITH MIN RESIDUALS.
--- NOTE | 2021-10-10 07:30 | NUR ---
ASSUMED CARE PATIENT LYING IN BED INTUBATED AND SEDATED ON PROPOFOL @ 45MCG/KG/MIN AND ON AC/VC 16/550/10/40%; SPO2 MID 90'S AND RR 16-LOW 20'S. NS INF TKO INTO RT IJ CL, RT AC PIV SALINE LOCKED. PATEL PATENT AND DRAINING ANNAMARIE URINE W/ SEDIMENT. TF @ GOAL TRICKLE RATE OF 15ML/HR W/ 30ML Q4H WATER FLUSHES. PATIENT DOES OPEN EYES TO COMMAND, BUT DOES NOT FOLLOW ANY OTHER COMMANDS. GRIMACES TO ORAL CARE AND REPOSITIONING. NSR W/ RATE 100'S-110'S.
--- NOTE | 2021-10-10 13:30 | NUR ---
SBT: Pt placed on pressure support for approximately 20 minutes. He was placed back on AC/VC at PEEP 5 and FiO2 40% due to tachycardia in 120's and SpO2 of 98%.
--- NOTE | 2021-10-10 17:47 | NUR ---
SHIFT SUMMARY PATIENT PLACED ON SPONTANEOUS TODAY FOR 23 MINUTES BEFORE DESATTING TO MID TO HIGH 80'S AND BECOMING TACHYCARDIC. VENT SETTINGS NOW AC/VC 16/550/5/30% W/ SPO2 LOW TO MID 90'S. PICC PLACED TO CELENA; RT IJ CL REMOVED W/O NO BLEEDING AT SITE PRESENT. LASIX STARTED TODAY AND PATIENT HAD 0 OUTPUT; URINE CHANGED FROM ANNAMARIE W/ SEDIMENT TO YELLOW AND CLEAR. FITORIE CAME TO VISIT TODAY AND UPDATES GIVEN. UPDATES GIVEN TO MOTHER DODIE OVER THE PHONE. NO OTHER CHANGES DURING SHIFT.
--- NOTE | 2021-10-10 21:00 | NUR ---
PATIENT REMAINS INTUBATED AND SEDATED WITH PROPOFOL 55 MCG, REACHING FOR ETT WHEN UNRESTRAINED, OPENS EYES TO STIMULI. NOT FOLLOWING DIRECTIONS. VENT AC/VC 16, TV 550, PEEP 5, FIO2 30% SUCTIONING SMALL AMT CLEAR SECRETIONS. DOCTOR SKYE GIVEN UPDATE, ORDER FOR REGLAN OBTAINED FOR ELEVATED RESIDUALS VIA OG TUBE. TUBE FEEDING CONTINUES AT GOAL RATE OF 15 CC/HR. ABD REMAINS ROUND AND SEMIFIRM WITH SLIGHT GIVE T/O ABD.
[2021-10-11 04:36] LABS: Hematocrit 37.7 % (37.0-53.0); Hemoglobin 12.4 g/dL (13.5-17.5); Mean Corpuscular HGB 30.8 pg (26.0-34.0); Mean Corpuscular HGB Conc 32.9 g/dL (31.5-36.5); Mean Corpuscular Volume 94 fL (80-100); Mean Platelet Volume 9.8 fL (9.1-12.4); NRBC ABSOLUTE 0.03 K/mm3 (0.00-0.02); NRBC Auto 0.2 /100 WBC (0.0-0.2); Platelet Count 152 K/mm3 (150-400); RDW Coefficient Variation 17.2 % (11.7-14.2); RDW Standard Deviation 58.8 fL (35.1-46.3); Red Blood Cell Count 4.03 M/mm3 (4.30-5.90); White Blood Cell Count 12.61 K/mm3 (4.00-11.30)
[2021-10-11 05:16] LABS: Alanine Aminotransfer (ALT/SGP 17 U/L (12-78); Albumin, Blood 1.7 g/dL (3.4-5.0); Albumin/Globulin Ratio 0.4 (0.8-1.8); Alk Phos 96 U/L (50-136); Anion Gap 9 mmol/L (6-16); Aspartate Aminotrans (AST/SGOT 30 U/L (12-37); Bilirubin, Total 2.7 mg/dL (0.1-1.0); Blood Urea Nitrogen 23 mg/dL (8-24); Bun/Creatinine Ratio 19.7 (12.0-20.0); CO2, Blood 26 mmol/L (21-32); Calcium, Blood 7.3 mg/dL (8.5-10.1); Chloride, Blood 105 mmol/L (98-108); Creatinine, Blood 1.17 mg/dL (0.60-1.20); Globulin, Blood 4.8 g/dL (2.2-4.0); Glomerular Filtration Rate >60 (60-); Glucose, Blood 136 mg/dL (70-99); Magnesium, Blood 1.7 mg/dL (1.6-2.4); Phosphorus, Blood 1.7 mg/dL (2.5-4.9); Potassium, Blood 3.2 mmol/L (3.5-5.5); Sodium, Blood 140 mmol/L (136-145); Total Protein, Blood 6.5 g/dL (6.4-8.2)
[2021-10-11 05:46] LABS: BAND PERCENT MAN 20 % (0-8); BASOPHILS PERCENT MAN 0 % (0-2); EOSINOPHILS PERCENT MAN 0 % (0-6); LYMPHOCYTES ABSOLUTE MAN 0.63 K/mm3 (0.84-5.20); LYMPHOCYTES PERCENT MAN 5 % (21-46); METAMYELOCYTE ABSOLUTE MAN 0.12 K/mm3 (0.00-0.00); METAMYELOCYTE PERCENT MAN 1 % (0-0); MONOCYTES PERCENT MAN 4 % (4-13); NEUTROPHILS ABSOLUTE MAN 11.34 K/mm3 (1.96-9.15); SEG NEUTROPHILS PERCENT MAN 70 % (41-73); TOTAL CELLS COUNTED 100
--- NOTE | 2021-10-11 06:47 | NUR ---
SUMMARY PATIENT REMAINS INTUBATED AND SEDATED PROPOFOL 40 MCG FOR SEDATION AND DILAUDID FOR SIGNS OF PAIN. [place] BUT NOT TO DIRECTION. OPENING EYES SPONTANEOUSLY. ETT IN PLACE WITH VENT AC/VC 16, TV 550, PEEP 5, FIO2 35% SUCTIONING CLEAR TO WHITE SPUTUM. OG REMAINS IN PLACE WITH VITAL HP AT GOAL RATE OF 15 CC/HR. ABD REMAINS ROUND AND FIRM, REGLAN GIVEN TWICE TO HELP MOBILIZE FEEDING. PATIENT PASSING FLATUS, NO BM.
--- NOTE | 2021-10-11 07:29 | NUR ---
ASSUMED CARE PATIENT LYING IN BED INTUBATED AND SEDATED ON PROPOFOL @ 40MCG/KG/MIN; VENT SETTINGS AC/VC 16/550/5/35% W/ SPO2 LOW TO MID 90'S AND RR 20. VHP INF @ GR OF 15ML/HR W/ 30ML Q4H WATER FLUSHES. PUPILS 2MM EQUAL AND ROUND WERO W/ BRISK RESPONSE TO LIGHT; GRIMACES TO ORAL CARE AND REPOSITIONING. DOES NOT FOLLOW COMMANDS OR OPEN EYES. AFEBRILE AT THIS TIME. LUNG SOUNDS ARE CLEAR T/O, DIM IN WERO BASES. SMALL AMOUNT OF CLEAR SPUTUM SUCTIONED FROM ETT W/ TINGE OF WHITE. ETT 8.0 24 CM @ GUMS. SINUS TACH W/ RATE IN 100'S. STRONG WERO RAIDAL AND DP PULSES, FAINT WERO PT PULSES. BT HYPERACTIVE T/O, ABD SEVERELY DISTENDED. PATEL PATENT AND DRAINING ANNAMARIE CLEAR URINE TO GRAVITY. SKIN OVERALL WARM, BUT NORMOTHERMIC @ 98.9F; DIAPHORETIC/CLAMMY. SCATTERED BRUISING TO BUE. REPORT COMPLETED W/ LEE PATIÑO.
--- NOTE | 2021-10-11 14:37 | NUR ---
AGITATION PATIENT BECAME RESTLESS IN BED, TWISTING HEAD SIDE TO SIDE, PULLING ON RESTRAINTS. SPO2 DECREASED TO 85% AND RR INCREASED TO MID 30'S. DILAUDID 1MG IVP ADMINISTERED AND FIO2 INCREASED TO 40%. PATIENT RESPONDED WELL, RESTING W/ EYES CLOSED, NOT PULLING ON ETT OR RESTRAINTS, AND SPO2 91% W/ RR 16.
--- NOTE | 2021-10-11 18:02 | NUR ---
SHIFT SUMMARY PATIENT REMAINED ON SPONTANEOUS VENT SETTINGS SINCE THIS MORNING. ORIGINALLY ON 8/5 35% AT THAT TIME, BUT CHANGED TO 15/5 AND 40% TO KEEP SPO2 GREATER THAN 90%. PRECEDEX RESTARTED AND TITRATED UP TO 0.7MCG/KG/HR FOR SEDATION AND WITHDRAWAL SYMPTOMS, PROPOFOL TITRATED DOWN TO 15MCG/KG/MIN. PATIENT OPENS EYES SPONTANEOUSLY AND BECOMES RESTLESS AT TIMES-SHAKING HEAD SIDE TO SIDE AND PULLING ON RESTRAINTS, TACHYCARDIC, TACHYPNEIC- RESOLVED W/ 1MG IVP DILAUDID. ELECTROLYTE REPLACEMENTS OF K-PHOS AND MAGNESIUM WERE GIVEN THIS MORNING; CONTINUED DIURESING W/ LASIX. ABD PRESSURE THIS MORNING WAS 13. TF INCREASED TO 25ML/HR W/ 60ML RESIDUAL AFTER 2 HOURS. REGLAN, MOM, AND DSS GIVEN TO PROMOTE GASTRIC MOTILITY; NO BM THIS SHIFT ALTHOUGH BT REMAIN HYPERACTIVE.
--- NOTE | 2021-10-11 22:25 | NUR ---
SHIFT ASSESSMENT ASSUMED CARE OF PT @ 1900. REPORT RECEIVED FROM LEE ARRIAGA. PT INTUBATED AND SEDATED. ON SPONTANEOUS 15 @ 60%. PROPOFOL GTT @ 10MCG/KG/MIN, ATTEMPTING TO TITRATE OFF. PRECEDEX NOW @ 1.2MCG/KG/HR. PT BECAME VERY ANXIOUS SHORTLY AFTER DECREASING PROPOFOL FROM 15MCG'S TO 10MCG'S. PULLING HARD AT RESTRAINTS, COUGHING VIGOROUSLY. PT ABLE TO FOLLOW COMMANDS, [employer] IN[employer] STRENGTH BILATERALLY. MEDICATED WITH PRN PAIN MEDS AND HALDOL, PT NOW CURRENTLY CALM & TOLERATING ETT. ABD FIRM AND DISTENDED. TF INFUSING @ GOAL RATE. NO BM. PATEL CATH PATENT, DRAINING ANNAMARIE URINE. WILL CONTINUE TO MONITOR CLOSELY.
[2021-10-12 05:54] LABS: Hematocrit 36.4 % (37.0-53.0); Hemoglobin 11.6 g/dL (13.5-17.5); Mean Corpuscular HGB 30.6 pg (26.0-34.0); Mean Corpuscular HGB Conc 31.9 g/dL (31.5-36.5); Mean Corpuscular Volume 96 fL (80-100); Mean Platelet Volume 10.5 fL (9.1-12.4); NRBC ABSOLUTE 0.05 K/mm3 (0.00-0.02); NRBC Auto 0.3 /100 WBC (0.0-0.2); Platelet Count 183 K/mm3 (150-400); RDW Coefficient Variation 17.1 % (11.7-14.2); Red Blood Cell Count 3.79 M/mm3 (4.30-5.90); White Blood Cell Count 15.32 K/mm3 (4.00-11.30)
--- NOTE | 2021-10-12 06:02 | NUR ---
SHIFT SUMMARY PT REMAINS INTUBATED AND SEDATED. UNABLE TO TITRATE PROPOFOL OFF. PT BECAME VERY AGITATED DURING THE NIGHT, PULLING VIGOROUSLY AT THE RESTRAINTS, NEARLY RIPPING THEM OFF. DURING THAT TIME PT WAS ABLE TO FOLLOW COMMANDS, SQUEEZING BOTH HANDS STRONGLY, POINTING TOWARD ET TUBE. PROPOFOL NOW @ 20MCG/KG/MIN & PRECEDEX @ 1.0MCG/KG/HR. VENT SETTINGS-AC/VC: 16/550/70% c PEEP-5, O2 SATS >90%. ABDOMINAL PRESSURE THIS MORNING WAS 9. TF CONTINUES @ GOAL. PATEL CATH PATENT, DRAINING ANNAMARIE URINE. NO OTHER ACUTE CHANGES, WILL CONTINUE TO MONITOR.
[2021-10-12 06:03] LABS: Bun/Creatinine Ratio 23.5 (12.0-20.0); Calcium, Blood 7.1 mg/dL (8.5-10.1); Creatinine, Blood 1.66 mg/dL (0.60-1.20); Magnesium, Blood 2.1 mg/dL (1.6-2.4); Phosphorus, Blood 2.4 mg/dL (2.5-4.9); Potassium, Blood 3.3 mmol/L (3.5-5.5)
[2021-10-12 06:29] LABS: BAND PERCENT MAN 18 % (0-8); BASOPHILS PERCENT MAN 0 % (0-2); EOSINOPHILS PERCENT MAN 2 % (0-6); LYMPHOCYTES ABSOLUTE MAN 0.45 K/mm3 (0.84-5.20); LYMPHOCYTES PERCENT MAN 3 % (21-46); MONOCYTES ABSOLUTE MAN 1.07 K/mm3 (0.16-1.47); MONOCYTES PERCENT MAN 7 % (4-13); NEUTROPHILS ABSOLUTE MAN 13.48 K/mm3 (1.96-9.15); SEG NEUTROPHILS PERCENT MAN 70 % (41-73); TOTAL CELLS COUNTED 100
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
[2021-10-13 03:33] LABS: Hematocrit 33.3 % (37.0-53.0); Hemoglobin 10.8 g/dL (13.5-17.5); Mean Corpuscular HGB 30.5 pg (26.0-34.0); Mean Corpuscular HGB Conc 32.4 g/dL (31.5-36.5); Mean Corpuscular Volume 94 fL (80-100); Mean Platelet Volume 10.2 fL (9.1-12.4); NRBC ABSOLUTE 0.06 K/mm3 (0.00-0.02); NRBC Auto 0.4 /100 WBC (0.0-0.2); Platelet Count 187 K/mm3 (150-400); RDW Coefficient Variation 17.1 % (11.7-14.2); RDW Standard Deviation 58.9 fL (35.1-46.3); Red Blood Cell Count 3.54 M/mm3 (4.30-5.90)
[2021-10-13 03:47] LABS: Bun/Creatinine Ratio 22.1 (12.0-20.0); Calcium, Blood 7.1 mg/dL (8.5-10.1); Creatinine, Blood 2.71 mg/dL (0.60-1.20); Magnesium, Blood 2.1 mg/dL (1.6-2.4); Phosphorus, Blood 3.7 mg/dL (2.5-4.9); Potassium, Blood 3.4 mmol/L (3.5-5.5)
[2021-10-13 03:55] LABS: BAND PERCENT MAN 13 % (0-8); BASOPHILS ABSOLUTE MAN 0.46 K/mm3 (0.00-0.23); BASOPHILS PERCENT MAN 3 % (0-2); EOSINOPHILS PERCENT MAN 0 % (0-6); LYMPHOCYTES ABSOLUTE MAN 1.09 K/mm3 (0.84-5.20); LYMPHOCYTES PERCENT MAN 7 % (21-46); MONOCYTES ABSOLUTE MAN 0.62 K/mm3 (0.16-1.47); MONOCYTES PERCENT MAN 4 % (4-13); NEUTROPHILS ABSOLUTE MAN 13.41 K/mm3 (1.96-9.15); SEG NEUTROPHILS PERCENT MAN 73 % (41-73); TOTAL CELLS COUNTED 100
--- NOTE | 2021-10-13 08:04 | NUR ---
ASSUMED CARE REPORT FROM STACIE HOWARD AT 0700. PT INTUBATED AND SEDATED. VENT SETTINGS AC/VC 16/550/12/80%. LUNGS COARSE THROUGHOUT. SMALL AMOUNT OF THIN CLEAR SECRETIONS THROUGH ETT. COUGH/GAG/SWALLOW REFLEX PRESENT, GRIMACIES c CARE. DOES NOT FOLLOW DIRECTIONS. PROPOFOL AND PRECEDEX GTT INFUSING. SR ON MONITOR, BP STABLE. SKIN P/W/D. ABD OBESE, SOFT. NO BT AUSCULTATED. OGT TO LIS, GREEN BILE OUT. 3+ EDEMA TO BLE. PATEL PATENT, DRAINING ANNAMARIE URINE TO GRAVITY. WILL ADD IVF AND MONITOR UO. PICC TO RUE. WILL CONTINUE TO MONITOR.
--- NOTE | 2021-10-13 17:20 | NUR ---
SHIFT SUMMARY PT REMAINS INTUBATED AND SEDATED. VENT SETTINGS AC/VC 16/550/12/80%. LUNGS CLEAR. SMALL AMOUNT OF CLEAR THIN SECRETIONS THROUGH ETT. COUGH/GAG/SWALLOW REFLEX. RESPONSIVE TO PAINFUL STIMULI. PULLS AGAINST RESTRAINTS WHEN SEDATION LIGHTENED. PROPOFOL AND PRECEDEX GTT FOR SEDATION. NSR, RATE 80'S. BP STABLE. OGT TO LIS, 450 ML OF YELLOW/BROWN BILE OUT. ABD OBESE, DISTENDED. BT HYPOACTIVE IN UPPER QUADRENTS, NONE HEARD IN LOWER. PATEL PATENT, DRAINED 400 ML ANNAMARIE URINE TO GRAVITY. 3+ EDEMA TO BLE. PICC WITHDRAWN 4 CM TO 6 CM OUT THIS SHIFT. IVF STARTED, 75 ML/HR. WILL CONTINUE TO MONITOR UNTIL REPORT TO ONCOMING NURSE.
[2021-10-13 20:25] LABS: Vancomycin, Trough 41.6 ug/mL (5.0-10.0)
[2021-10-14 04:32] LABS: Hematocrit 32.9 % (37.0-53.0); Hemoglobin 10.4 g/dL (13.5-17.5); Mean Corpuscular HGB 30.2 pg (26.0-34.0); Mean Corpuscular HGB Conc 31.6 g/dL (31.5-36.5); Mean Corpuscular Volume 96 fL (80-100); Mean Platelet Volume 10.7 fL (9.1-12.4); NRBC ABSOLUTE 0.11 K/mm3 (0.00-0.02); NRBC Auto 0.8 /100 WBC (0.0-0.2); Platelet Count 223 K/mm3 (150-400); RDW Coefficient Variation 17.4 % (11.7-14.2); RDW Standard Deviation 60.6 fL (35.1-46.3); Red Blood Cell Count 3.44 M/mm3 (4.30-5.90); White Blood Cell Count 14.49 K/mm3 (4.00-11.30)
[2021-10-14 05:00] LABS: Bun/Creatinine Ratio 26.4 (12.0-20.0); Calcium, Blood 7.3 mg/dL (8.5-10.1); Creatinine, Blood 2.69 mg/dL (0.60-1.20); Magnesium, Blood 2.2 mg/dL (1.6-2.4); Phosphorus, Blood 5.1 mg/dL (2.5-4.9); Potassium, Blood 3.3 mmol/L (3.5-5.5)
[2021-10-14 05:43] LABS: BAND PERCENT MAN 24 % (0-8); BASOPHILS PERCENT MAN 0 % (0-2); EOSINOPHILS ABSOLUTE MAN 0.14 K/mm3 (0.00-0.68); EOSINOPHILS PERCENT MAN 1 % (0-6); LYMPHOCYTES ABSOLUTE MAN 0.72 K/mm3 (0.84-5.20); LYMPHOCYTES PERCENT MAN 5 % (21-46); MONOCYTES ABSOLUTE MAN 0.72 K/mm3 (0.16-1.47); MONOCYTES PERCENT MAN 5 % (4-13); NEUTROPHILS ABSOLUTE MAN 12.89 K/mm3 (1.96-9.15); SEG NEUTROPHILS PERCENT MAN 65 % (41-73); TOTAL CELLS COUNTED 100
--- NOTE | 2021-10-14 08:34 | NUR ---
ASSUMED CARE REPORT FROM STACIE HOWARD AT 0700. PT INTUBATED AND SEDATED. VENT SETTINGS AC/VC 16/550/12/85%. LUNGS CLEAR, SMALL THIN, WHITE SECRETIONS THROUGH ETT. COUGH/GAG REFLEX. RESPONSIVE TO PAINFUL STIMULI. DOES NOT FOLLOW COMMANDS. SR, RATE 80'S. BP STABLE. ABD OBESE, DISTENDED. HYPOACTIVE BT IN ALL QUADRENTS. OGT CLAMPED AFTER MEDS GIVEN, WILL PUT TO LIS. PATEL PATENT, DRAINING ANNAMARIE URINE TO GRAVITY. 3+ EDEMA TO BLE. GENERALIZED EDEMA TO HANDS. PICC TO [facility], DRESSING C/D/I. CONTINUE IVF AND ANTIBIOTICS. WILL CONTINUE TO MONITOR.
[2021-10-14 09:53] LABS: Vancomycin, Random 28.7 ug/mL
--- NOTE | 2021-10-14 17:40 | NUR ---
SHIFT SUMMARY NO ACUTE CHANGES THIS SHIFT. PT REMAINS INTUBATED AND SEDATED. VENT SETTINGS AC/VC 16/550/12/80%. LUNGS CLEAR. SMALL SECRETIONS. PROPOFOL AND PRECEDEX GTT FOR SEDATION. PT SPONT OPENS EYES. DOES NOT FOLLOW COMMANDS. HYPOACTIVE BT, ABD OBESE, DISTENDED. OGT TO LIS. 500ML BROWN BILE OUT. PATEL PATENT, DRAINING ANNAMARIE URINE TO GRAVITY. 875ML OUT THIS SHIFT. VSS. WILL CONTINUE TO MONITOR UNTIL REPORT TO ONCOMING NURSE.
[2021-10-15 03:35] LABS: Hematocrit 30.7 % (37.0-53.0); Hemoglobin 9.8 g/dL (13.5-17.5); Mean Corpuscular HGB 30.4 pg (26.0-34.0); Mean Corpuscular HGB Conc 31.9 g/dL (31.5-36.5); Mean Corpuscular Volume 95 fL (80-100); Mean Platelet Volume 10.9 fL (9.1-12.4); NRBC ABSOLUTE 0.12 K/mm3 (0.00-0.02); NRBC Auto 0.9 /100 WBC (0.0-0.2); Platelet Count 226 K/mm3 (150-400); RDW Coefficient Variation 17.2 % (11.7-14.2); RDW Standard Deviation 61.1 fL (35.1-46.3); Red Blood Cell Count 3.22 M/mm3 (4.30-5.90); White Blood Cell Count 13.57 K/mm3 (4.00-11.30)
[2021-10-15 03:58] LABS: Albumin, Blood 1.2 g/dL (3.4-5.0); Anion Gap 12 mmol/L (6-16); BAND PERCENT MAN 15 % (0-8); BASOPHILS PERCENT MAN 0 % (0-2); Blood Urea Nitrogen 66 mg/dL (8-24); Bun/Creatinine Ratio 31.1 (12.0-20.0); CO2, Blood 22 mmol/L (21-32); Calcium, Blood 6.7 mg/dL (8.5-10.1); Chloride, Blood 110 mmol/L (98-108); Creatinine, Blood 2.12 mg/dL (0.60-1.20); EOSINOPHILS ABSOLUTE MAN 0.27 K/mm3 (0.00-0.68); EOSINOPHILS PERCENT MAN 2 % (0-6); Glomerular Filtration Rate 32 (60-); Glucose, Blood 135 mg/dL (70-99); LYMPHOCYTES ABSOLUTE MAN 0.67 K/mm3 (0.84-5.20); LYMPHOCYTES PERCENT MAN 5 % (21-46); MONOCYTES ABSOLUTE MAN 0.13 K/mm3 (0.16-1.47); MONOCYTES PERCENT MAN 1 % (4-13); MYELOCYTE ABSOLUTE MAN 0.13 K/mm3 (0.00-0.00); MYELOCYTE PERCENT MAN 1 % (0-0); Magnesium, Blood 2.2 mg/dL (1.6-2.4); NEUTROPHILS ABSOLUTE MAN 12.34 K/mm3 (1.96-9.15); Potassium, Blood 3.2 mmol/L (3.5-5.5); SEG NEUTROPHILS PERCENT MAN 76 % (41-73); Sodium, Blood 144 mmol/L (136-145); TOTAL CELLS COUNTED 100
--- NOTE | 2021-10-15 07:44 | NUR ---
ASSUMED CARE REPORT FROM STACIE HOWARD AT 0700. PT INTUBATED AND SEDATED. VENT SETTINGS AC/VC 16/550/12/65%. LUNGS CLEAR, SMALL THIN WHITE SECRETIONS THROUGH ETT. COUGH/GAG REFLEX PRESENT. PROPOFOL AND PRECEDEX GTT FOR SEDATION. PT ABLE TO SQUEEZE HANDS ON COMMAND. WITHDRAWS LOWER EXT TO PAIN. ABD FIRM, DISTENDED, TYMPANIC. HYPOACTIVE BT. OGT CLAMPED AFTER MEDS, WILL PLACE TO LIS. BROWN BILE OUT. BP STABLE, NSR, RATE 80'S. 3+ EDEMA TO LOWER EXT. PATEL PATENT, DRAINING ANNAMARIE URINE TO GRAVITY. PICC TO [facility], DRESSING C/D/I. K BEING REPLACED. WILL CONTINUE TO MONITOR.
--- NOTE | 2021-10-15 17:45 | NUR ---
SHIFT SUMMARY NO ACUTE CHANGES THIS SHIFT. REMAINS INTUBATED AND SEDATED. VENT SETTINGS AC/VC 16/550/12/60%. ABLE TO TITRATE FIO2 DOWN THIS SHIFT BUT SEDATIONS ARE THICK AND YELLOW AT THIS TIME. PT ABLE TO FOLLOW SIMPLE COMMANDS. PROPOFOL AND PRECEDEX FOR SEDATION. BT VERY HYPOACTIVE, 500 ML BROWN BILE OUT THIS SHIFT. PATEL PATENT, DRAINING 650 ML ANNAMARIE URINE OUT. CONTINUES TO HAVE 3+ EDEMA TO BLE. VSS. WILL CONTINUE TO MONITOR UNTIL REPORT TO ONCOMING NURSE.
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
--- NOTE | 2021-10-16 04:30 | NUR ---
PT MORE ALERT THIS AM, NO SPONT EYE OPENING, BUT MORE RESISTANT TO NOXIOUS STIMULI. CONT W WRISTS RESTRAINED. TMAX 99.8. WILL CONSIDER CHANGING PATEL FOR TEMP PROBE, AND SENDING UA FOR CULTURE. NO ADDITIONAL SEDATING MEDS GIVEN, CONT ON PROPOFOL 30MCG & PRECEDEX 0.7. CONT W MOD AMT OG DRNG. VSS, CONT W LOW GRADE TEMP. WILL REPORT TO DAYS.
[2021-10-16 05:10] LABS: Hematocrit 31.2 % (37.0-53.0); Hemoglobin 9.8 g/dL (13.5-17.5); Mean Corpuscular HGB 30.3 pg (26.0-34.0); Mean Corpuscular HGB Conc 31.4 g/dL (31.5-36.5); Mean Corpuscular Volume 97 fL (80-100); Mean Platelet Volume 11.3 fL (9.1-12.4); NRBC ABSOLUTE 0.11 K/mm3 (0.00-0.02); NRBC Auto 0.6 /100 WBC (0.0-0.2); Platelet Count 286 K/mm3 (150-400); RDW Coefficient Variation 17.6 % (11.7-14.2); Red Blood Cell Count 3.23 M/mm3 (4.30-5.90); White Blood Cell Count 17.01 K/mm3 (4.00-11.30)
[2021-10-16 06:00] LABS: Bun/Creatinine Ratio 31.1 (12.0-20.0); Calcium, Blood 7.8 mg/dL (8.5-10.1); Creatinine, Blood 2.41 mg/dL (0.60-1.20); Magnesium, Blood 2.6 mg/dL (1.6-2.4); Phosphorus, Blood 4.4 mg/dL (2.5-4.9); Potassium, Blood 3.7 mmol/L (3.5-5.5)
[2021-10-16 06:14] LABS: PCO2 Arterial 32.4 mmHg (35-45); pH Blood Arterial 7.42 (7.35-7.45)
[2021-10-16 07:25] LABS: BAND PERCENT MAN 26 % (0-8); BASOPHILS PERCENT MAN 0 % (0-2); EOSINOPHILS PERCENT MAN 0 % (0-6); LYMPHOCYTES ABSOLUTE MAN 1.19 K/mm3 (0.84-5.20); LYMPHOCYTES PERCENT MAN 7 % (21-46); MONOCYTES ABSOLUTE MAN 0.68 K/mm3 (0.16-1.47); MONOCYTES PERCENT MAN 4 % (4-13); MYELOCYTE ABSOLUTE MAN 0.17 K/mm3 (0.00-0.00); MYELOCYTE PERCENT MAN 1 % (0-0); NEUTROPHILS ABSOLUTE MAN 14.96 K/mm3 (1.96-9.15); SEG NEUTROPHILS PERCENT MAN 62 % (41-73); TOTAL CELLS COUNTED 100
--- NOTE | 2021-10-16 09:30 | NUR ---
ASSUMED CARE RECEIVED REPORT FROM LEE GALAVIZ AT 0700. PT INTUBATED AND SEDATED. PROPOFOL @ 30MCG/KG/MIN, PRECEDEX 0.7 MCG/KG/HR. PT RESPONDS TO PAINFUL STIUMULI ONLY AT THIS TIME, GRIMACING WITH ORAL CARE. PUPILS ARE PINPOINT. LUNGS ARE CLEAR, DIMINSHED IN BASES. SMALL AMOUNT OF THICK, YELLOW SPUTUM WITH ETT SUCTION. VENT: AC/VC 16/550/12/70%, SPO2 >92%. HR IS SINUS RHYTHM WITH 1 DEGREE AV BLOCK. BP STABLE. OG TO LIS, CLAMPED FOR AM MEDS. ABDOMEN IS DISTENDED AND FIRM. PATEL DRAINING ANNAMARIE, CLEAR URINE TO GRAVITY. SKIN OVERALL C/D/I, HOWEVER FORHEAD IS CLAMMY/DIAPHORETIC. CELENA PICC DRESSING INTACT, 6CM OUT. ORDERS REVIEWED AND WILL TREAT PRESCRIBED. AT 0900, DR. CHANG TO BEDSIDE AND ORDERS GIVEN TO START TRICKLE TUBE FEED. DIETARY RECOMMENDED VHP.
[2021-10-16 12:58] LABS: Source, Urine Catheter
[2021-10-16 13:02] LABS: Appearance, Urine Hazy (Clear); Bilirubin, Urine Neg (Neg); Blood, Urine 4+ (Neg); Color, Urine Yellow (P-Yellow); Glucose Qualitative, Urine Neg (Neg); Ketones, Urine Neg (Neg); Leukocyte Esterase, Urine Neg (Neg); Nitrite, Urine Neg (Neg); Protein, Urine 2+ (Neg); Specific Gravity, Urine 1.015 (1.003-1.022); Urobilinogen, Urine 1+ (Normal)
[2021-10-16 13:25] LABS: Amorphous Heavy (0-Heavy); Bacteria Rare /hpf; Renal Epithelial Rare /hpf (0-Rare); Squamous Epithelial Cells Rare /hpf (Few)
--- NOTE | 2021-10-16 14:24 | NUR ---
DISCUSSION HELD BETWEEN DR. CHANG AND DR. PORTER RE: ORAL CONTRAST FOR CT SCAN. AT THIS TIME WE WILL NOT BE GIVING ORAL CONTRAST.
--- NOTE | 2021-10-16 17:10 | NUR ---
PT TRANSPORTED TO CT AT 1630 W/ 1RN, 1RT, AND 1 TRANSPORTER. PT RETURNED TO ICU AT [address] VSS. TUBE FEED STARTED, VHP AT 10ML/HR W/ Q4H 30ML FLUSH. ICE PACKS AND GOWN REMOVED D/T ELEVATED TEMP.
--- NOTE | 2021-10-16 18:01 | NUR ---
PT REMAINS INTUBATED AND SEDATED. PROPOFOL AND PRECEDEX REMAIN UNCHANGED. HE RESPONDS TO PAINFUL/NOXIOUS STIMULI ONLY. GRIMACING WITH ORAL CARE AND SQUEEZES EYES SHUT. FEBRILE, TMAX OF 102.2 WITH TEMP PATEL. VENT SETTINGS AC/VC: 16/550/12/75%, SPO2 >90%. HR IS SR WITH 1ST DEGREE AV BLOCK, RATE IN 80'S. BP REMAINED STABLE T/O SHIFT, DESPITE 80MG OF LASIX. PT TAKEN TO CT THIS AFTERNOON FOR CT OF ABDOMEN, RESULTS PENDING. VITAL HP STARTED AT 10ML/HR W/ Q4H 30ML FLUSH. ABDOMEN REMAINS FIRM AND DISTENDED. TEMP PATEL PATENT, DRAINING TO GRAVITY, ANNAMARIE URINE WITH SOME SEDIMENT. WILL REPORT TO ONCOMING SHIFT.
[2021-10-17 03:26] LABS: Hematocrit 30.2 % (37.0-53.0); Hemoglobin 9.6 g/dL (13.5-17.5); Mean Corpuscular HGB 30.6 pg (26.0-34.0); Mean Corpuscular HGB Conc 31.8 g/dL (31.5-36.5); Mean Corpuscular Volume 96 fL (80-100); Mean Platelet Volume 11.2 fL (9.1-12.4); NRBC ABSOLUTE 0.07 K/mm3 (0.00-0.02); NRBC Auto 0.4 /100 WBC (0.0-0.2); Platelet Count 352 K/mm3 (150-400); RDW Coefficient Variation 17.6 % (11.7-14.2); Red Blood Cell Count 3.14 M/mm3 (4.30-5.90); White Blood Cell Count 16.63 K/mm3 (4.00-11.30)
[2021-10-17 03:46] LABS: BAND PERCENT MAN 16 % (0-8); BASOPHILS ABSOLUTE MAN 0.16 K/mm3 (0.00-0.23); BASOPHILS PERCENT MAN 1 % (0-2); EOSINOPHILS ABSOLUTE MAN 0.33 K/mm3 (0.00-0.68); EOSINOPHILS PERCENT MAN 2 % (0-6); LYMPHOCYTES ABSOLUTE MAN 0.66 K/mm3 (0.84-5.20); LYMPHOCYTES PERCENT MAN 4 % (21-46); METAMYELOCYTE ABSOLUTE MAN 0.16 K/mm3 (0.00-0.00); METAMYELOCYTE PERCENT MAN 1 % (0-0); MONOCYTES ABSOLUTE MAN 0.66 K/mm3 (0.16-1.47); MONOCYTES PERCENT MAN 4 % (4-13); NEUTROPHILS ABSOLUTE MAN 14.63 K/mm3 (1.96-9.15); SEG NEUTROPHILS PERCENT MAN 72 % (41-73); TOTAL CELLS COUNTED 100
[2021-10-17 04:00] LABS: Albumin, Blood 1.2 g/dL (3.4-5.0); Albumin/Globulin Ratio 0.2 (0.8-1.8); Bilirubin, Direct 3.6 mg/dL (0.0-0.3); Bilirubin, Indirect 0.1 mg/dL (0.1-0.7); Bilirubin, Total 3.7 mg/dL (0.1-1.0); Bun/Creatinine Ratio 30.4 (12.0-20.0); Calcium, Blood 7.6 mg/dL (8.5-10.1); Creatinine, Blood 2.63 mg/dL (0.60-1.20); Globulin, Blood 5.4 g/dL (2.2-4.0); Phosphorus, Blood 4.3 mg/dL (2.5-4.9); Potassium, Blood 3.5 mmol/L (3.5-5.5); Total Protein, Blood 6.6 g/dL (6.4-8.2)
--- NOTE | 2021-10-17 09:56 | NUR ---
PATIENT SEDATED, RESTRAINTS IN PLACE, DR CHANG ROUNDED, POSSIBLE CONSULT WITH ENT FOR TRACH PLACEMENT, NO ORDER TO START YET THOUGH
--- NOTE | 2021-10-17 14:09 | NUR ---
ADELAIDA AT BEDSIDE, WANTING TO TALK TO DR CHANG, WILL RELAY
--- NOTE | 2021-10-17 18:16 | NUR ---
PATIENT RESPONDS TO PAINFUL STIMULUS AND ORAL CARE, PUPILS BRISK, TEMP DECREASED TO 99.0, LS CLEAR TO COARSE, THICK MINIMAL SECRETIONS BLACKMAN, ACVC 16/550/16/65%, RESPS 16-20, SATS ABOVE 92%. TELE NSR 1D AV BLOCK, SBP 100-120'S, ABD HYPOACTIVE, TRICKLE FEEDS AT 10 ML/HR, NO BM SINCE 10/13, FIRM AND DISTENDED, PATEL TO GRAVITY CLEAR ANNAMARIE, LASIX 160 MG TOTAL TODAY, OUTPUT >1000. COCCYX DRSG CDI, NO SKIN BREAKDOWN, REPOSITIONED THROUGHOUT THE DAY, PICC CELENA INPLACE, PRECEDEX 0.7, PROPOFOL 30 MCG, AND TKO. ADELAIDA CHAMBERS TODAY, MOTHER AND FIANCE ON CONTACT LIST, THEY TRAVEL FROM [place], LEFT MESSAGE WITH DR CHANG TO CONTACT FAMILY, WILL RELAY TO PM RN, WCTM
--- NOTE | 2021-10-17 19:00 | NUR ---
ASSUMED CARE ASSUMED CARE OF PATIENT. REMAINS INTUBATED- AC/VC 16/550/PEEP 16/FIO2 65%. RR 26-31. SEDATED WITH PROPOFOL AT 40MCG/KG/MIN AND PRECEDEX AT 0.7MCG/KG/HR. MONITOR SHOWS ST, RATE 100-105. BP STABLE. TEMP 100.5F. OG WITH VITAL HIGH PROTEIN AT 10CC/HR (GOAL). PATEL PATENT AND DRAINING TO GRAVITY. SEE SHIFT ASSESSMENT FOR FULL ASSESSMENT.
[2021-10-18 04:11] LABS: BASOPHILS PERCENT AUTO 1 % (0-2); Hematocrit 30.1 % (37.0-53.0); Hemoglobin 9.5 g/dL (13.5-17.5); LYMPHOCYTES PERCENT AUTO 6 % (21-46); Mean Corpuscular HGB 30.4 pg (26.0-34.0); Mean Corpuscular HGB Conc 31.6 g/dL (31.5-36.5); Mean Corpuscular Volume 96 fL (80-100); Mean Platelet Volume 11.2 fL (9.1-12.4); Platelet Count 439 K/mm3 (150-400); RDW Coefficient Variation 17.7 % (11.7-14.2); RDW Standard Deviation 63.3 fL (35.1-46.3); Red Blood Cell Count 3.13 M/mm3 (4.30-5.90); White Blood Cell Count 15.66 K/mm3 (4.00-11.30)
[2021-10-18 04:16] LABS: EOSINOPHILS PERCENT AUTO 3 % (0-6); IMMATURE GRAN PERCENT AUTO 2 % (0-1)
[2021-10-18 04:18] LABS: BASOPHILS ABSOLUTE AUTO 0.12 K/mm3 (0.00-0.23); LYMPHOCYTES ABSOLUTE AUTO 0.86 K/mm3 (0.84-5.20); MONOCYTES ABSOLUTE AUTO 0.68 K/mm3 (0.16-1.47); MONOCYTES PERCENT AUTO 4 % (4-13); NRBC ABSOLUTE 0.14 K/mm3 (0.00-0.02); NRBC Auto 0.9 /100 WBC (0.0-0.2)
[2021-10-18 04:21] LABS: EOSINOPHILS ABSOLUTE AUTO 0.52 K/mm3 (0.00-0.68); IMMATURE GRAN ABSOLUTE AUTO 0.28 K/mm3 (0.00-0.10); NEUTROPHILS ABSOLUTE AUTO 13.12 K/mm3 (1.96-9.15); NEUTROPHILS PERCENT AUTO 84 % (41-73)
[2021-10-18 04:54] LABS: Albumin, Blood 1.8 g/dL (3.4-5.0); Anion Gap 12 mmol/L (6-16); Blood Urea Nitrogen 85 mg/dL (8-24); CO2, Blood 20 mmol/L (21-32); Calcium, Blood 8.4 mg/dL (8.5-10.1); Chloride, Blood 112 mmol/L (98-108); Creatinine, Blood 2.83 mg/dL (0.60-1.20); Glomerular Filtration Rate 23 (60-); Glucose, Blood 127 mg/dL (70-99); Phosphorus, Blood 4.4 mg/dL (2.5-4.9); Potassium, Blood 3.7 mmol/L (3.5-5.5); Sodium, Blood 144 mmol/L (136-145)
--- NOTE | 2021-10-18 06:14 | NUR ---
SHIFT SUMMARY NO ACUTE CHANGES. REMAINS INTUBATED- VENT SETTINGS UNCHANGED. SEDATED WITH PRECEDEX BETWEEN 0.7-0.9MCG/KG/HR AND PROPOFOL BETWEEN 35-40MCG/KG/MIN. PRECEDEX NOW AT 0.9MCG/KG/HR AND PROPOFOL AT 35MCG/KG/MIN. STILL NOT FOLLOWING COMMANDS. SLIGHT AGITATION NOTED AT TIMES WITH STIMULATION. MOVES ALL EXTREMITIES. VSS. TMAX 101.1F. VITAL HIGH PROTEIN AT 10CC/HR PER ORDER. RESIDUALS 65-265. PATEL PATENT AND DRAINING TO GRAVITY. WILL REPORT TO ONCOMING RN WHEN AVAILABLE.
--- NOTE | 2021-10-18 08:00 | NUR ---
ASSUMED CARE BEDSIDE REPORT FROM NELSON HOWARD AT 0700. PT INTUBATED, SEDATED. VENT SETTINGS AC/VC 16/550/16/65%. LUNGS CLEAR THROUGHOUT. MODERATE THICK YELLOW SECRETIONS THROUGH ETT. PROPOFOL AND PRECEDEX GTT FOR SEDATION. PT ATTEMPTS TO OPEN EYES TO VERBAL STIMULI. WITHDRAWS EXT TO PAINFUL STIMULI, GRIMACES c CARE. DOES NOT FOLLOW COMMANDS. SR, RATE 80'S. BP STABLE. ABD OBESE, FIRM, DISTENDED. HYPOACTIVE BT. TYMPANIC. TUBE FEEDS AT GOAL OF 10 ML/HR c 30 ML FLUSH q4 HR. RESIDUALS 180 ML THIS AM. PATEL PATENT, DRAINING ANNAMARIE URINE TO GRAVITY. 2+ EDEMA IN LOWER EXT. PICC TO RUE, DRESSING C/D/I. WILL CONTINUE TO MONITOR.
--- NOTE | 2021-10-18 17:22 | NUR ---
SHIFT SUMMARY NO ACUTE CHANGES THIS SHIFT. REMAINS INTUBATED AND SEDATED. VENT SETTINGS UNCHANGED, MODERATE THICK YELLOW SPUTUM. LUNGS COARSE. ABD FIRM, DISTENDED. HYPOACTIVE BT. TRICKLE FEEDS, RESIDUALS 180-200 ML THIS SHIFT. DIURESED, 1250 YELLOW URINE OUT, PATEL TO GRAVITY. NO BM. ALBUMIN GIVEN. VSS. WILL CONTINUE TO MONITOR UNTIL REPORT TO ONCOMING NURSE.
--- NOTE | 2021-10-18 19:15 | NUR ---
ASSESSMENT/ASSUMED CARE PT INTUB[facility] AND [facility]. SEDATED WITH PROPOFOL AND PRECEDEX. TRIES TO OPEN EYES WITH ORAL CARE. NOT FOLLOWING INSTRUCTIONS. LUNGS CLEAR BUT DECREASED IN THE BASES. VENT SETTINGS AC 16 TV 550 PEEP 16 FIO2 65%. RT SUCTIONED THICK YELLOW SECRECTIONS VIA ET TUBE. ORAL CARE DONE. REPOSITONED PT. HEART RATE REGULAR IN THE 70'S. BP STABLE. EDEMA NOTED TO EXT, ELEVATED ON PILLOWS. BT+ HYPOACTIVE. ABD FIRM AND ROUND. OG WITH TUBE FEED VITAL HP AT 10 ML/HR, WATER 30 ML Q4HR. RESIDUAL 330 ML. STOPPED TUBE FEED FOR NOW. PATEL CATH PATENT DRAINING YELLOW URINE. EDEMA TO SCROTUM. PICC LINE TO RIGHT UPPER ARM DRSG INTACT, SITE CLEAR. PROPOFOL AT 35 MCQ/KG/MIN, PRECEDEX AT 0.9 MCQ/KG/MIN, CLINIMIX AT 75 ML/HR AND NS AT TKO. ALBUMIN COMPLETE. PICC LINE OUT 6 CM. DRSG TO COCCYX INTACT.
--- NOTE | 2021-10-18 21:02 | NUR ---
RESIDUAL RECHECKED RESIDUAL 260ML, WASTED. HS MEDS GIVEN AND TUBE FEED VITAL HP RESTARTED AT 10 ML/HR, WATER 30 ML Q4HR.
--- NOTE | 2021-10-18 23:45 | NUR ---
REASSESSMENT PT RESTING QUIETLY. BILAT WRIST RESTRAINTS ON. LUNGS CLEAR BUT DECREASED IN THE BASES AFTER SUCTIONING SCANT AMT VIA ET TUBE. RESIDUAL CHECH 330 ML REFED. TUBE FEED PLACED ON HOLD DUE TO HIGH RESIDUAL. REPOSITIONED AND ORAL CARE DONE.
--- NOTE | 2021-10-19 01:11 | NUR ---
HIGH RESIDUAL RESIDUAL 275 ML REFED. CONT TO HOLD TUBE FEED
--- NOTE | 2021-10-19 01:18 | NUR ---
SUCTIONED ET TUBE FOR LARGE AMT BLOODY SECRECTIONS.
--- NOTE | 2021-10-19 02:08 | NUR ---
FEVER TEMP UP TO 100.2. BLANKETS OFF, FAN ON PT AND ICE PACKS APPLIED. RESIDUAL 300 ML CONT TO HOLD TUBE FEED.
--- NOTE | 2021-10-19 02:27 | NUR ---
PAIN PT MED WITH DILAUDID FOR SEDATION ADJUNCT. ELEVATED RESP RATE 30'S, AND GRIMACING.
[2021-10-19 03:49] LABS: BASOPHILS PERCENT AUTO 1 % (0-2); Hematocrit 29.9 % (37.0-53.0); Hemoglobin 9.3 g/dL (13.5-17.5); LYMPHOCYTES ABSOLUTE AUTO 0.74 K/mm3 (0.84-5.20); LYMPHOCYTES PERCENT AUTO 5 % (21-46); MONOCYTES ABSOLUTE AUTO 0.61 K/mm3 (0.16-1.47); MONOCYTES PERCENT AUTO 4 % (4-13); Mean Corpuscular HGB Conc 31.1 g/dL (31.5-36.5); Mean Corpuscular Volume 97 fL (80-100); NRBC ABSOLUTE 0.23 K/mm3 (0.00-0.02); NRBC Auto 1.6 /100 WBC (0.0-0.2); Platelet Count 481 K/mm3 (150-400); RDW Coefficient Variation 17.9 % (11.7-14.2); RDW Standard Deviation 62.8 fL (35.1-46.3); White Blood Cell Count 14.33 K/mm3 (4.00-11.30)
[2021-10-19 04:04] LABS: EOSINOPHILS ABSOLUTE AUTO 0.47 K/mm3 (0.00-0.68); EOSINOPHILS PERCENT AUTO 3 % (0-6); IMMATURE GRAN ABSOLUTE AUTO 0.66 K/mm3 (0.00-0.10); IMMATURE GRAN PERCENT AUTO 5 % (0-1); NEUTROPHILS ABSOLUTE AUTO 11.75 K/mm3 (1.96-9.15); NEUTROPHILS PERCENT AUTO 82 % (41-73)
[2021-10-19 04:17] LABS: Albumin, Blood 2.2 g/dL (3.4-5.0); Albumin/Globulin Ratio 0.4 (0.8-1.8); Bilirubin, Direct 3.7 mg/dL (0.0-0.3); Bilirubin, Indirect 0.4 mg/dL (0.1-0.7); Bilirubin, Total 4.1 mg/dL (0.1-1.0); Bun/Creatinine Ratio 31.9 (12.0-20.0); Calcium, Blood 8.8 mg/dL (8.5-10.1); Creatinine, Blood 2.6 mg/dL (0.60-1.20); Free Thyroxine 0.65 ng/dL (0.70-1.60); Globulin, Blood 5.6 g/dL (2.2-4.0); Potassium, Blood 3.2 mmol/L (3.5-5.5); Thyroid Stimulating Hormone 3.19 uIU/mL (0.360-4.800); Total Protein, Blood 7.8 g/dL (6.4-8.2)
--- NOTE | 2021-10-19 06:03 | NUR ---
SHIFT SUMMARY PT CONT INTUBATED AND ON [facility] VENT. NO VENT CHANGES DURING THE NIGHT. CURRENT VENT SETTINGS AC 16 TV 550 PEEP 16 FIO2 35%. SUCTIONED BLOODY SECRECTIONS VIA ET TUBE LARGE AMT. TEMP UP TO 100.8 DURING THE NIGHT, ICE PACKS, FAN AND REMOVED BLANKET. TEMP DOWN TO 99.1. HIGH RESIDUALS DURING THE NIGHT. WASTED 570 OF GASTRIC CONTENTS AND HELD TUBE FEED MOST OF THE NIGHT. TUBE FEED CURRENTLY VITAL HP AT 10 ML/HR, WATER 30 ML Q4HR. NO BM SINCE 10/13/21 MED WITH DSS AND MOM. CLINIMIX AT 75 ML/HR, PRECEDEX AT 0.9 MCQ/KG/MIN AND PROPOFOL AT 35 MCQ/KG/MIN. PATEL CATH PATENT. DRSG TO [employer] CD&I. VSS. REPORT TO ON COMING NURSE.
--- NOTE | 2021-10-19 17:28 | NUR ---
SHIFT SUMMARY RESIDUALS PULLED DURING FIRST MED PASS AND WERE STILL HIGH. FIRST RESIDUAL WAS 400ML. BOWEL SOUNDS WERE HYPOACTIVE AND RARE. TUBE FEEDING WAS DISCONTINUED AND PT WAS HOOKED UP TO INTERMITENT OG SUCTION. TRIED TITRATING PT OFF SEDATION MEDICATIONS, PRECIDEX DISCONTINUED AND PROPOFOL TURNED UP. PT BECAME ACTIVE AND LESS SEDATED SO PRECIDEX TURNED BACK ON. SEE FLOWSHEET. UPON SUCTIONING THE ET TUBE, RED/BLACKMAN THICK SPUTUM WAS FOUND. TRACHEOSTOMY PLACEMENT PLANNED FOR TOMORROW, HEPARIN INJECTIONS DISCONTINUED EARLIER THIS EVENING. PRIMARY NURSE SPOKE WITH MOTHER AND UPDATED HER THIS SHIFT.
[2021-10-20 03:46] LABS: Hematocrit 29.5 % (37.0-53.0); Hemoglobin 9.3 g/dL (13.5-17.5); Mean Corpuscular HGB 30.4 pg (26.0-34.0); Mean Corpuscular HGB Conc 31.5 g/dL (31.5-36.5); Mean Corpuscular Volume 96 fL (80-100); Mean Platelet Volume 10.9 fL (9.1-12.4); NRBC Auto 1.8 /100 WBC (0.0-0.2); Platelet Count 482 K/mm3 (150-400); RDW Coefficient Variation 18.2 % (11.7-14.2); RDW Standard Deviation 62.6 fL (35.1-46.3); Red Blood Cell Count 3.06 M/mm3 (4.30-5.90); White Blood Cell Count 16.73 K/mm3 (4.00-11.30)
[2021-10-20 04:02] LABS: International Normalized Ratio 1.32; Prothrombin Time Results 13.6 Sec (9.7-11.5)
[2021-10-20 04:05] LABS: BAND PERCENT MAN 21 % (0-8); BASOPHILS ABSOLUTE MAN 0.16 K/mm3 (0.00-0.23); BASOPHILS PERCENT MAN 1 % (0-2); EOSINOPHILS ABSOLUTE MAN 0.66 K/mm3 (0.00-0.68); EOSINOPHILS PERCENT MAN 4 % (0-6); LYMPHOCYTES ABSOLUTE MAN 0.83 K/mm3 (0.84-5.20); LYMPHOCYTES PERCENT MAN 5 % (21-46); MONOCYTES ABSOLUTE MAN 0.16 K/mm3 (0.16-1.47); MONOCYTES PERCENT MAN 1 % (4-13); MYELOCYTE ABSOLUTE MAN 0.16 K/mm3 (0.00-0.00); MYELOCYTE PERCENT MAN 1 % (0-0); NEUTROPHILS ABSOLUTE MAN 14.72 K/mm3 (1.96-9.15); SEG NEUTROPHILS PERCENT MAN 67 % (41-73); TOTAL CELLS COUNTED 100
[2021-10-20 04:13] LABS: Albumin, Blood 1.7 g/dL (3.4-5.0); Albumin/Globulin Ratio 0.3 (0.8-1.8); Bilirubin, Total 3.7 mg/dL (0.1-1.0); Calcium, Blood 8.7 mg/dL (8.5-10.1); Creatinine, Blood 2.5 mg/dL (0.60-1.20); Globulin, Blood 5.6 g/dL (2.2-4.0); Phosphorus, Blood 4.7 mg/dL (2.5-4.9); Potassium, Blood 3.2 mmol/L (3.5-5.5); Total Protein, Blood 7.3 g/dL (6.4-8.2)
[2021-10-20 10:49] LABS: Triglycerides 349 mg/dL (30-160)
--- NOTE | 2021-10-20 16:57 | NUR ---
SUMMARY PT INTUBATED AND SEDATED WITH PROPOFOL AND PRECEDEX. PT WILL GRIMACDE TO NOXIOUS STIMULI AND PURPOSEFULLY REACHES FOR ETT. WHEN SEDATION IS DOWN RESP RATE AND HR INCREASE. OG TO LIS WITH 400ML OF GREEN BILE OUTPUT THIS SHIFT. PT DID NOT GET A TRACH TODAY BUT WILL AT SOME POINT THIS WEEKEND PENDING SURGEON AVAILABILITY. HEPARIN RESTARTED AND WILL BE HELD IN AM. NO OTHER CHANGES.
[2021-10-21 03:37] LABS: Hematocrit 27.4 % (37.0-53.0); Hemoglobin 9.2 g/dL (13.5-17.5); Mean Corpuscular HGB 32.6 pg (26.0-34.0); Mean Corpuscular HGB Conc 33.6 g/dL (31.5-36.5); Mean Corpuscular Volume 97 fL (80-100); NRBC ABSOLUTE 0.37 K/mm3 (0.00-0.02); NRBC Auto 2.2 /100 WBC (0.0-0.2); Platelet Count 440 K/mm3 (150-400); RDW Coefficient Variation 18.5 % (11.7-14.2); Red Blood Cell Count 2.82 M/mm3 (4.30-5.90); White Blood Cell Count 16.99 K/mm3 (4.00-11.30)
[2021-10-21 04:20] LABS: Albumin, Blood 1.5 g/dL (3.4-5.0); Albumin/Globulin Ratio 0.3 (0.8-1.8); Bilirubin, Total 3.7 mg/dL (0.1-1.0); Bun/Creatinine Ratio 31.6 (12.0-20.0); Calcium, Blood 7.8 mg/dL (8.5-10.1); Creatinine, Blood 2.34 mg/dL (0.60-1.20); Globulin, Blood 5.5 g/dL (2.2-4.0); Phosphorus, Blood 5.9 mg/dL (2.5-4.9); Potassium, Blood 3.7 mmol/L (3.5-5.5)
[2021-10-21 05:43] LABS: BAND PERCENT MAN 20 % (0-8); BASOPHILS PERCENT MAN 0 % (0-2); EOSINOPHILS ABSOLUTE MAN 0.84 K/mm3 (0.00-0.68); EOSINOPHILS PERCENT MAN 5 % (0-6); METAMYELOCYTE ABSOLUTE MAN 0.84 K/mm3 (0.00-0.00); METAMYELOCYTE PERCENT MAN 5 % (0-0); MONOCYTES PERCENT MAN 0 % (4-13); MYELOCYTE ABSOLUTE MAN 1.01 K/mm3 (0.00-0.00); MYELOCYTE PERCENT MAN 6 % (0-0); NEUTROPHILS ABSOLUTE MAN 14.27 K/mm3 (1.96-9.15); SEG NEUTROPHILS PERCENT MAN 64 % (41-73); TOTAL CELLS COUNTED 100
--- NOTE | 2021-10-21 11:52 | NUR ---
DR. BLANK IN THIS AM AND ATTEMPTED TRACH PLACEMENT. PT WAS GIVEN 4MG VERSED, 1MG DILAUDID, 25MG OF ROCURONIUM AND REMAINED ON PROPOFOL AND PRECEDEX. AFTER SEDATING MEDS SPO2 DIPPED DOWN TO 83% AND WAS UNABLE TO RECOVER. PROCEDURE WAS HELD AND WILL RE EVALUATE IN A COUPLE DAYS. DR. CHANG INCREASED PEEP TO 24 AND FIO2 TO 100% FOR NOW. HE SAID OK TO TITRATE PEEP BACK DOWN AFTER FIO2 IS UNDER 70%.
--- NOTE | 2021-10-21 17:01 | NUR ---
SUMMARY PT INTUBATED AND SEDATED WITH PROPOFOL AND PRECEDEX. PT WILL GRIMACE WITH CARE. DID NOT TITRATE SEDATION DOWN TODAY DUE TO FAILED TRACH PROCEDURE, PEEP UP TO 24, AND FIO2 70-100%. UNSUCCESSFULL TRACH DUE TO PT DESATTING BEFORE PROCEDURE. MD'S WILL RE EVAL IN A COUPLE DAYS. PT'S ABD STILL FIRM AND DISTENDED. OG WAS REPLACED TODAY AFTER IT WAS REMOVED DURING PROCEDURE. OG TO LIS WITH GREEN BILE OUTPUT. NOT A CANDIDATE FOR PEG TUBE FOR NOW. NO OTHER CHANGES.
[2021-10-22 03:46] LABS: Hemoglobin 8.7 g/dL (13.5-17.5); Mean Corpuscular HGB 31.8 pg (26.0-34.0); Mean Corpuscular HGB Conc 32.2 g/dL (31.5-36.5); Mean Corpuscular Volume 99 fL (80-100); Mean Platelet Volume 10.8 fL (9.1-12.4); NRBC ABSOLUTE 0.67 K/mm3 (0.00-0.02); NRBC Auto 3.3 /100 WBC (0.0-0.2); Platelet Count 387 K/mm3 (150-400); RDW Coefficient Variation 18.8 % (11.7-14.2); RDW Standard Deviation 66.7 fL (35.1-46.3); Red Blood Cell Count 2.74 M/mm3 (4.30-5.90); White Blood Cell Count 20.27 K/mm3 (4.00-11.30)
[2021-10-22 04:13] LABS: BAND PERCENT MAN 26 % (0-8); BASOPHILS PERCENT MAN 0 % (0-2); EOSINOPHILS PERCENT MAN 1 % (0-6); LYMPHOCYTES ABSOLUTE MAN 1.41 K/mm3 (0.84-5.20); LYMPHOCYTES PERCENT MAN 7 % (21-46); METAMYELOCYTE PERCENT MAN 1 % (0-0); MONOCYTES ABSOLUTE MAN 0.81 K/mm3 (0.16-1.47); MONOCYTES PERCENT MAN 4 % (4-13); MYELOCYTE ABSOLUTE MAN 0.81 K/mm3 (0.00-0.00); MYELOCYTE PERCENT MAN 4 % (0-0); NEUTROPHILS ABSOLUTE MAN 16.82 K/mm3 (1.96-9.15); SEG NEUTROPHILS PERCENT MAN 57 % (41-73); TOTAL CELLS COUNTED 100
[2021-10-22 04:16] LABS: Anion Gap 12 mmol/L (6-16); Blood Urea Nitrogen 87 mg/dL (8-24); Bun/Creatinine Ratio 26.8 (12.0-20.0); CO2, Blood 19 mmol/L (21-32); Calcium, Blood 8.1 mg/dL (8.5-10.1); Chloride, Blood 103 mmol/L (98-108); Creatinine, Blood 3.25 mg/dL (0.60-1.20); Glomerular Filtration Rate 20 (60-); Glucose, Blood 148 mg/dL (70-99); Potassium, Blood 4.6 mmol/L (3.5-5.5); Sodium, Blood 134 mmol/L (136-145)
[2021-10-22 05:18] LABS: Phosphorus, Blood 8.9 mg/dL (2.5-4.9)
--- NOTE | 2021-10-22 14:35 | NUR ---
PT INTUBATED AND SEDATED WITH PROPOFOL AND PRECEDEX. PT WILL GRIMACE TO PAIN. TODAY ABD IS VERY DISTENDED AND FIRM. OG STILL TO LIS WITH GREEN BILE OUTPUT. FIO2 AT 100% WITH PEEP 18. DR. BLANK WANTED AN ABD PRESSURE AFTER GIVING PT ROCURONIUM. PRESSURE WAS 22. PT TAKEN FOR ABD CT. DURING CT PT DESATS TO 85%, HAD TO INCREASE PEEP TO 22. DR. CHANG PLACED TRIALYSIS CATH TO [facility] TO START DIALYSIS TODAY DUE TO FLUID OVERLOAD AND KIDNEY FUNCTION DECREASING. DR. PENNINGTON CONSULTED AND SPOKE WITH IN PERSON.
--- NOTE | 2021-10-22 18:11 | NUR ---
SUMMARY PT INTUBATED AND SEDATED. GOT DIALYSIS CATH TODAY AND IS STARTING DIALYSIS NOW. WENT TO CT FOR CT OF ABD DUE TO SEVERE DISTENTION AND VERY RARE BT'S. DR. BLANK WANTS PT ON PARALYTIC THROUGH THE NIGHT AFTER ABD PRESSURE OF 22 TODAY. NIMBEX STARTED AND BEING TITRATED. BIS MONITOR IS READING 60-80. INCREASED PROPOFOL AND PRECEDEX AND GAVE ATIVAN WITHOUT A CHANGE IN BIS READING. PT HAS BEEN SEDATED WELL WITH PROPOFOL AND PRECEDEX ALL DAY. WILL CONTINUE TO TITRATE NIMBEX AND SEDATION PER BIS AND TOF.
--- NOTE | 2021-10-22 20:39 | NUR ---
ASSUMED PT CARE FROM LEE IRWIN AT 1915 PT RECEIVING DIALYSIS AT THIS TIME. RIGHT IJ TRIALYSIS CATHETER. PICC TO CELENA WITH PRECEDEX INFUSING AT 0.7 MCG/KG/HR, PROPOFOL AT 50MCG/KG/MIN, NIMBEX AT 3MCG/KG/MIN. BIS READING 20'S; HOWEVER, PER REPORT THIS DOESN'T APPEAR ACCURATE PT WAS READING 70'S-90'S AND THEN WAS MEDICATED WITH ATIVAN. TRAIN OF FOUR 4/4 TO RIGHT EYEBROW. PT SYNCHRONOUS WITH VENT WITH AC/CV 16, VT 550, PEEP 22, FIO2 100%. UNABLE TO ASSESS COUGH/GAG AT THIS TIME D/T DIALYSIS IN PROGRESS. ABDOMEN APPEARS VERY DISTENDED AND HARD; WILL ASSESS PRESSURES LATER THIS SHIFT. PATEL IS PATENT AND DRAINING MINIMAL AMOUNTS OF URINE TO GRAVITY. SEE SHIFT SUMMARY FOR FURTHER DETAILS.
[2021-10-23 04:20] LABS: Hematocrit 29.7 % (37.0-53.0); Mean Corpuscular HGB 30.9 pg (26.0-34.0); Mean Corpuscular HGB Conc 30.3 g/dL (31.5-36.5); Mean Corpuscular Volume 102 fL (80-100); Mean Platelet Volume 10.6 fL (9.1-12.4); NRBC ABSOLUTE 0.87 K/mm3 (0.00-0.02); NRBC Auto 3.5 /100 WBC (0.0-0.2); Platelet Count 354 K/mm3 (150-400); RDW Standard Deviation 70.2 fL (35.1-46.3); Red Blood Cell Count 2.91 M/mm3 (4.30-5.90); White Blood Cell Count 24.82 K/mm3 (4.00-11.30)
[2021-10-23 05:07] LABS: Albumin, Blood 2.2 g/dL (3.4-5.0); Anion Gap 14 mmol/L (6-16); Blood Urea Nitrogen 71 mg/dL (8-24); Bun/Creatinine Ratio 20.8 (12.0-20.0); CO2, Blood 21 mmol/L (21-32); Calcium, Blood 8.3 mg/dL (8.5-10.1); Chloride, Blood 99 mmol/L (98-108); Creatinine, Blood 3.41 mg/dL (0.60-1.20); Glomerular Filtration Rate 19 (60-); Glucose, Blood 157 mg/dL (70-99); Phosphorus, Blood 10.7 mg/dL (2.5-4.9); Potassium, Blood 6.2 mmol/L (3.5-5.5); Sodium, Blood 134 mmol/L (136-145)
--- NOTE | 2021-10-23 05:26 | NUR ---
END OF SHIFT SUMMARY PT REMAINS INTUBATED/SEDATED/PARALYZED. VENT AC/VC 16, VT 550, PEEP 22, FIO2 100%. PT HAS BEEN SYNCHRONISE WITH VENT WITH NO COUGH/GAG. TOF; 4/4. BIS 40-60. PROPOFOL REMAINS AT 50MCG/KG/MIN, PRECEDEX AT 0.7MCG/KG/HR, CLINIMIX AT 75ML/HR, AND NIMBEX AT 3MCG/KG/MIN. DR. BLANK STOPPED BY THIS MORNING ASKING FOR ABDOMINAL PRESSURE, WHICH WAS OBTAINED AND SHOWED A PRESSURE OF 22. PT HAS BEEN SINUS TACH WITH HR 110-120'S. BP'S HAVE SLOWLY TRENDED UP WELL. REPLACED BIS MONITOR STRIP THAT WAS READING 30'S AT THE TIME WITH A NEW ONE THAT READ 70. PT MEDICATED ADJUNCTIVELY WITH HALDOL WHICH WAS EFFECTIVE WITH BIS NOW READING 40-60 AND BP'S HAVE STARTED TRENDING BACK DOWN FROM SBP OF 170'S TO 140'S. PATEL CATHETER REMAINS PATENT AND DRAINING MINIMAL AMOUNTS OF ANNAMARIE COLORED URINE WITH SEDIMENT TO GRAVITY. WILL CONTINUE TO MONITOR UNTIL REPORT IS HANDED OFF TO ONCOMING RN.
[2021-10-23 06:08] LABS: BAND PERCENT MAN 11 % (0-8); BASOPHILS PERCENT MAN 0 % (0-2); EOSINOPHILS ABSOLUTE MAN 0.24 K/mm3 (0.00-0.68); EOSINOPHILS PERCENT MAN 1 % (0-6); LYMPHOCYTES ABSOLUTE MAN 0.24 K/mm3 (0.84-5.20); LYMPHOCYTES PERCENT MAN 1 % (21-46); METAMYELOCYTE ABSOLUTE MAN 0.99 K/mm3 (0.00-0.00); METAMYELOCYTE PERCENT MAN 4 % (0-0); MONOCYTES ABSOLUTE MAN 0.49 K/mm3 (0.16-1.47); MONOCYTES PERCENT MAN 2 % (4-13); MYELOCYTE ABSOLUTE MAN 2.48 K/mm3 (0.00-0.00); MYELOCYTE PERCENT MAN 10 % (0-0); NEUTROPHILS ABSOLUTE MAN 20.35 K/mm3 (1.96-9.15); SEG NEUTROPHILS PERCENT MAN 71 % (41-73); TOTAL CELLS COUNTED 100
--- NOTE | 2021-10-23 19:48 | NUR ---
ASSESSMENT/ASSUMED CARE PT INTUBATED AND ON [facility] VENT. LUNGS DECREASED THROUGHOUT. VENT SETTINGS AC 16 TV 550 PEEP 22 FIO2 90%. RT SUCTIONED THICK BLACKMAN SECRECTIONS VIA ET TUBE. HEART RATE TACHY 110-120. BP STABLE ON DOUBLE STRENGTH LEVOPHED AT 6 MCQ/MIN. GENERAL EDEMA NOTED. ELEVATED EXT. BT ABSENT. ABD FIRM AND EDEMA NOTED. OG TO LIS WITH GREEN/BROWN DRAINAGE NOTED IN TUBING. DIALYSIS CATH NOTED TO RIGHT IJ WITH NS AT 10 ML/HR VIA PIGTAIL. DIALYSIS PORTS CLAMPED AND WRAPPED. DRSG INTACT AND SITE CLEAR. PICC LINE TO RIGHT UPPER ARM, SITE CLEAR AND DRSG INTACT. PROPOFOL AT 50 MCQ/KG/MIN, PRECEDEX AT 0.7 MCQ/KG/HR, LEVOPHED 6 MCQ/MIN, NIMBEX AT 3 MCQ/KG/MIN, AND CPN AT 75 ML/HR. BISS 43 AND TOF 4/4. ORAL CARE AND REPOSITIONED. DRSG TO COCCYX AND RIGHT HIP INTACT.
[2021-10-24 03:29] LABS: Hematocrit 28.1 % (37.0-53.0); Hemoglobin 8.6 g/dL (13.5-17.5); Mean Corpuscular HGB 31.3 pg (26.0-34.0); Mean Corpuscular HGB Conc 30.6 g/dL (31.5-36.5); Mean Corpuscular Volume 102 fL (80-100); Mean Platelet Volume 10.4 fL (9.1-12.4); NRBC ABSOLUTE 1.07 K/mm3 (0.00-0.02); NRBC Auto 4.6 /100 WBC (0.0-0.2); Platelet Count 256 K/mm3 (150-400); RDW Coefficient Variation 19.3 % (11.7-14.2); RDW Standard Deviation 72.1 fL (35.1-46.3); Red Blood Cell Count 2.75 M/mm3 (4.30-5.90); White Blood Cell Count 23.16 K/mm3 (4.00-11.30)
[2021-10-24 03:54] LABS: BAND PERCENT MAN 13 % (0-8); BASOPHILS PERCENT MAN 0 % (0-2); EOSINOPHILS ABSOLUTE MAN 0.23 K/mm3 (0.00-0.68); EOSINOPHILS PERCENT MAN 1 % (0-6); LYMPHOCYTES ABSOLUTE MAN 1.62 K/mm3 (0.84-5.20); LYMPHOCYTES PERCENT MAN 7 % (21-46); METAMYELOCYTE ABSOLUTE MAN 0.46 K/mm3 (0.00-0.00); METAMYELOCYTE PERCENT MAN 2 % (0-0); MONOCYTES ABSOLUTE MAN 0.92 K/mm3 (0.16-1.47); MONOCYTES PERCENT MAN 4 % (4-13); MYELOCYTE ABSOLUTE MAN 0.23 K/mm3 (0.00-0.00); MYELOCYTE PERCENT MAN 1 % (0-0); NEUTROPHILS ABSOLUTE MAN 19.68 K/mm3 (1.96-9.15); SEG NEUTROPHILS PERCENT MAN 72 % (41-73); TOTAL CELLS COUNTED 100
[2021-10-24 03:57] LABS: PCO2 Arterial 71.2 mmHg (35-45); PO2 Arterial 76.9 mmHg (80-100)
[2021-10-24 04:24] LABS: CPK Creatine Kinase 33 U/L (39-308); Magnesium, Blood 2.2 mg/dL (1.6-2.4)
[2021-10-24 04:35] LABS: Albumin, Blood 2.3 g/dL (3.4-5.0); Anion Gap 14 mmol/L (6-16); Blood Urea Nitrogen 59 mg/dL (8-24); Bun/Creatinine Ratio 17.4 (12.0-20.0); CO2, Blood 23 mmol/L (21-32); Calcium, Blood 8.4 mg/dL (8.5-10.1); Chloride, Blood 96 mmol/L (98-108); Glomerular Filtration Rate 19 (60-); Glucose, Blood 155 mg/dL (70-99); Phosphorus, Blood 8.8 mg/dL (2.5-4.9); Sodium, Blood 133 mmol/L (136-145); Triglycerides 1018 mg/dL (30-160)
[2021-10-24 04:38] LABS: Potassium, Blood 4.5 mmol/L (3.5-5.5)
--- NOTE | 2021-10-24 06:35 | NUR ---
SHIFT SUMMARY PT CONT INTUBATED AND ON [facility] VENT. VENT SETTINGS AC 22 TV 550 PEEP 22 FIO2 100%. FIO2 AND RATE INCREASED DURING THE NIGHT. PT CURRENTLY ON LEVOPHED AT 6 MCQ/MIN TO KEEP MAP GREATER THAN 65. LEVOPHED WAS TITRATED OFF FOR SEVERAL HOURS BUT HAD TO BE RESTART THIS AM. PT SEDATED WITH PROPOFOL AT 50 MCQ/KG/MIN AND PRECEDEX AT 0.7 MCQ/KG/HR. PARALIZED WITH NIMBEX AT 3 MCQ/KG/MIN. BISS AT 43 TOF 4/4. CPN AT 75 ML/HR. PICC LINE TO RIGHT UPPER ARM AND DIALYSIS CATH TO RIGHT IJ. PT TURNED Q2HR SIDE TO SIDE TO KEEP OFF COCCYX. DRSG TO COCCYX AND RIGHT THIGH INTACT. POOR URINE OUTPUT. REPORT TO ON COMING NURSE
[2021-10-24 09:00] LABS: HBSAG SCREEN Negative (Negative); HEP A AB, IGM Negative (Negative); HEP B CORE AB, IGM Negative (Negative); HEP C VIRUS AB >11.0 (0.0-0.9)
[2021-10-24 09:40] LABS: PCO2 Arterial 57.2 mmHg (35-45); PO2 Arterial 62.1 mmHg (80-100)
[2021-10-24 09:41] LABS: pH Blood Arterial 7.16 (7.35-7.45)
--- NOTE | 2021-10-24 19:33 | NUR ---
RT updated of patient suturation approx 86% since 6pm per dayshift RN
--- NOTE | 2021-10-24 20:52 | NUR ---
spoke with Dr. Delatorre patient desating between 84-85% currently, adjustments made to vent settings by RT per Dr. Delatorre's orders patient has fever of 100.9F, PO meds held due to abdomen distention and OGT output. Dr. Delatorre says okay to hold PO and suggested acetaminophen rectal. Transport Medic discussed concerns for too much movement for patient due to history of desturation when laying flat after last night's bath and no return to pre-bath Fio2 and saturations. Dr. Delatorre suggests ice packs and if no results, then attempt rectal acetaminophen because controlling the fever may aid respirations/ventilation.
--- NOTE | 2021-10-24 23:28 | NUR ---
patient's family at bedside
--- NOTE | 2021-10-24 23:28 | NUR ---
patient's family at bedside
[2021-10-25 04:10] LABS: PCO2 Arterial 53.4 mmHg (35-45); PO2 Arterial 50.5 mmHg (80-100); pH Blood Arterial 7.22 (7.35-7.45)
[2021-10-25 05:02] LABS: Hematocrit 26.9 % (37.0-53.0); Hemoglobin 8.5 g/dL (13.5-17.5); Mean Corpuscular HGB 31.1 pg (26.0-34.0); Mean Corpuscular HGB Conc 31.6 g/dL (31.5-36.5); Mean Corpuscular Volume 99 fL (80-100); Mean Platelet Volume 10.6 fL (9.1-12.4); NRBC ABSOLUTE 1.85 K/mm3 (0.00-0.02); NRBC Auto 5.4 /100 WBC (0.0-0.2); Platelet Count 231 K/mm3 (150-400); RDW Coefficient Variation 19.4 % (11.7-14.2); RDW Standard Deviation 69.5 fL (35.1-46.3); Red Blood Cell Count 2.73 M/mm3 (4.30-5.90); White Blood Cell Count 33.95 K/mm3 (4.00-11.30)
[2021-10-25 05:49] LABS: Albumin, Blood 2.1 g/dL (3.4-5.0); Anion Gap 17 mmol/L (6-16); Blood Urea Nitrogen 57 mg/dL (8-24); Bun/Creatinine Ratio 16.2 (12.0-20.0); CO2, Blood 22 mmol/L (21-32); Chloride, Blood 93 mmol/L (98-108); Creatinine, Blood 3.52 mg/dL (0.60-1.20); Glomerular Filtration Rate 18 (60-); Glucose, Blood 155 mg/dL (70-99); Magnesium, Blood 2.2 mg/dL (1.6-2.4); Potassium, Blood 3.5 mmol/L (3.5-5.5); Sodium, Blood 132 mmol/L (136-145)
[2021-10-25 05:53] LABS: Phosphorus, Blood 4.9 mg/dL (2.5-4.9)
--- NOTE | 2021-10-25 05:56 | NUR ---
End of shift summary: Propofol decreased down to 15mcg/kg/min (propofol decreased when BIS <45) Nimbex decreased down to 2.5mcg/kg/min (TOF 0/4 on 3, 4/4 on 4,vent tolerated) Levophed decreased to 3mcg/min (SBP > 100) KVO @ 10ml/hr for IVPB Clinimix remains the same Temp high = 102F --> cooling blankets and ice packs used (temp now 100.0F) HR increased overnight up to sinus tach 120s. NBP stable - able to decrease levo gtt some Patient lung sounds --> rhonci, scattered wheeze, pleural rub RUL; inline secretions are [place] and thick, oral secretions are clear and thick; pulse ox reading declining overnight (currently 79% with 100% Fio2 --> Dr. Delatorre and RT aware, adjustments made overnight to vent settings with no improvement, patient remains on PC but now rate of 22, PEEP 17, 100% Fio2) No urine output - dialysis patient No BM; OGT output = 500ml dark green liquid; held PO meds d/t acute pancreatitis/severe abdominal distention/NPO including TF; intraabdominal pressure reading of 24 while sitting upright in fowlers position (too unstable to lay flat) No HS bath due to patient's unstable condition to turn and reposition morning ABG pH critical at 7.2 but improved compared to previous ABG pending labs
[2021-10-25 06:30] LABS: BAND PERCENT MAN 19 % (0-8); BASOPHILS ABSOLUTE MAN 0.67 K/mm3 (0.00-0.23); BASOPHILS PERCENT MAN 2 % (0-2); EOSINOPHILS PERCENT MAN 0 % (0-6); LYMPHOCYTES ABSOLUTE MAN 0.33 K/mm3 (0.84-5.20); LYMPHOCYTES PERCENT MAN 1 % (21-46); METAMYELOCYTE ABSOLUTE MAN 0.33 K/mm3 (0.00-0.00); METAMYELOCYTE PERCENT MAN 1 % (0-0); MONOCYTES ABSOLUTE MAN 0.67 K/mm3 (0.16-1.47); MONOCYTES PERCENT MAN 2 % (4-13); MYELOCYTE ABSOLUTE MAN 0.67 K/mm3 (0.00-0.00); MYELOCYTE PERCENT MAN 2 % (0-0); NEUTROPHILS ABSOLUTE MAN 31.23 K/mm3 (1.96-9.15); SEG NEUTROPHILS PERCENT MAN 73 % (41-73); TOTAL CELLS COUNTED 100
--- NOTE | 2021-10-25 07:30 | NUR ---
PT INTUBATED AND SEDATED WITH PROPOFOL AND PRECEDEX. BIS 37-50. ON NIMBEX WITH TOF 4/4 ON LEVEL 4. PT IS RIDING THE VENT. TITRATING LEVOPHED. SPO2 70-75%, DR. DAILY AWARE AND WILL BE IN TO SEE PT. COOLING BLANKET ON FOR TEMP. ABD DISTENDED WITH DARK GREEN BILE OUTPUT FROM OG TO LIS. NO BT'S. SEE ASSESSMENT.
--- NOTE | 2021-10-25 08:30 | NUR ---
DR. DAILY IN TO SEE PT. NIMBEX STOPPED PER ORDERS. ABD PRESSURE OBTAINED PER DR. DAILY. ABD PRESSURE 25.
--- NOTE | 2021-10-25 09:05 | NUR ---
PT BP AND HR STARTED DROPPING DESPITE INCREASING LEVOPHED TO 20MCG. SPO2 DROPPED DOWN TO 69% AND WOULD NOT RECOVER. PT WENT ASYSTOLE AND NO PULSE FOUND AT 0905. DR. DAILY AND MEDICAL TEAM AT BEDSIDE. HAD CALLED MOM DODIE EARLIER IN THE AM BUT UNABLE TO MAKE IT HERE IN TIME. CALLED HER BACK TO INFORM HER OF .
--- NOTE | 2021-10-25 09:26 | NUR ---
DIALYSIS TALKED TO RN AND DR DAILY ABOUT DOING TX ON. THEY BOTH SAID HE WASN'T DOING WELL. DR DAILY SAID HE WANTED TO SEE IF GETTING MORE FLUID WOULD HELP. I SET UP THE MACHINE AND TOOK DONE TO ROOM JUST THEY MADE THE DECISION TO STOP ALL CARE.
== END 2021-10-25 09:10 | DRG 438 ==
LOC: ER 04:34 → ICUE 06:55 → ERHOLD 06:55 → MEDS 16:54 → ICUE 10-07 04:17
PROVIDERS: Family Medicine; Internal Medicine; Internal Medicine Critical Care Medicine; Pharmacist; Pharmacist Pharmacotherapy; Student in an Organized Health Care Education/Training Program; ADMIT Internal Medicine
PROC: 5A12012 Performance of Cardiac Output, Single, Manual (ICD-10-PCS; principal; 2021-10-07)
PROC: 0BH17EZ Insertion of Endotracheal Airway into Trachea, Via Natural or Artificial Opening (ICD-10-PCS; 2021-10-07)
PROC: 5A1955Z Respiratory Ventilation, Greater than 96 Consecutive Hours (ICD-10-PCS; 2021-10-07)
PROC: 3E043XZ Introduction of Vasopressor into Central Vein, Percutaneous Approach (ICD-10-PCS; 2021-10-08)
PROC: 02HV33Z Insertion of Infusion Device into Superior Vena Cava, Percutaneous Approach (ICD-10-PCS; 2021-10-22)
PROC: 5A1D70Z Performance of Urinary Filtration, Intermittent, Less than 6 Hours Per Day (ICD-10-PCS; 2021-10-22)
DX: K85.21 Alcohol induced acute pancreatitis with uninfected necrosis (principal); R65.21 Severe sepsis with septic shock; J96.01 Acute respiratory failure with hypoxia; A41.52 Sepsis due to Pseudomonas; J15.1 Pneumonia due to Pseudomonas; Z66 Do not resuscitate; N17.0 Acute kidney failure with tubular necrosis; J96.02 Acute respiratory failure with hypercapnia; Z68.41 Body mass index [BMI] 40.0-44.9, adult; F10.239 Alcohol dependence with withdrawal, unspecified; K56.7 Ileus, unspecified; E87.0 Hyperosmolality and hypernatremia; E87.1 Hypo-osmolality and hyponatremia; Z20.822 Contact with and (suspected) exposure to COVID-19; Z78.1 Physical restraint status; E88.09 Other disorders of plasma-protein metabolism, not elsewhere classified; I46.9 Cardiac arrest, cause unspecified; E87.6 Hypokalemia; E83.42 Hypomagnesemia; E83.51 Hypocalcemia; E66.01 Morbid (severe) obesity due to excess calories; E83.39 Other disorders of phosphorus metabolism; E87.5 Hyperkalemia; R56.9 Unspecified convulsions; I10 Essential (primary) hypertension; D64.9 Anemia, unspecified; E03.9 Hypothyroidism, unspecified; Z28.21 Immunization not carried out because of patient refusal; F17.210 Nicotine dependence, cigarettes, uncomplicated; Z88.8 Allergy status to other drugs, medicaments and biological substances; Z79.899 Other long term (current) drug therapy
CPT/HCPCS: 0241U; 31500; 36415; 36556; 36569; 36600; 70450; 71045; 71260; 74176; 74177; 74178; 76705; 80048; 80053; 80069; 80074; 80202; 81001; 82248; 82330; 82550; 82803; 82947; 83605; 83690; 83735; 83880; 84100; 84132; 84295; 84439; 84443; 84478; 84484; 85025; 85610; 85730; 86317; 87040; 87070; 87077; 87086; 87186; 87205; 92950; 93005; 93010; 93970; 94002; 94003; 94640; 94760; 96365; 96366; 96375; 96376; 99285-25; A9270; C1751; C1752; C8923; C9113; J0282; J0610; J0713; J0744; J1170; J1630; J1644; J1650; J1815; J1885; J1940; J1953; J2060; J2250; J2270; J2405; J2543; J2550; J2704; J2765; J3370; J3411; J3475; J3480; J7030; J7040; J7042; J7050; J7060; J7070; J7120; J7131; P9046; Q9957; Q9967